=== PATIENT | female | born 1940 | race Caucasian/White ===

== ENCOUNTER 2016-04-27 17:19 | Inpatient (IN) | payer MEDICARE, OTHER ==
--- NOTE | 2016-04-27 18:18 | ER Document Report ---
ED Respiratory Problem - General Chief Complaint: Shortness Of Breath Stated Complaint: DIFFICULTY BREATHING Time seen by provider: 18:17 Mode of Arrival: Medic Information source: Emergency Med Personnel TRAVEL OUTSIDE OF THE [place] IN LAST 30 DAYS: No - HPI Patient complains to provider of: Short of breath Onset: Just prior to arrival Severity: Moderate Short of Breath: Moderate Cough: Nonproductive Associated symptoms: Difficulty breathing Notes: Patient is a 76-year-old female brought to the emergency room by EMS for reported difficulty breathing with an initial pulse ox in the 70s on EMS arrival , however patient is nonverbal, is unable to provide any further details and no family members have presented to the emergency room with her for additional information, patient is chronically ill-appearing, with dry oral mucosa, but does not appear in any acute distress on initial evaluation - Related Data Allergies/Adverse Reactions: codeine [Codeine] Allergy (Verified 12/26/14 09:29) Heparin Analogues [Heparin Agents] Allergy (Verified 12/26/14 09:29) latex [Latex] Allergy (Verified 12/26/14 09:29) meperidine HCl [From Demerol] Allergy (Verified 12/26/14 09:29) Home Medications: Current Home Medications Polyethylene Glycol 3350 [Polyethylene Glycol] 1 cap PEG DAILY 04/28/16 [History ] Past Medical History - General Information source: Emergency Med Personnel - Social History Smoking Status: Unknown if Ever Smoked Family History: Reviewed & Not Pertinent - Past Medical History Cardiac Medical History: Reports: Hx Hypertension Pulmonary Medical History: Reports: Hx COPD Endocrine Medical History: Reports: Hx Diabetes Mellitus Type 2 Past Surgical History: Reports: Hx Bowel Surgery - PEG Tube insertion, Hx Cardiac Surgery, Hx Open Heart Surgery - Immunizations Hx Pneumococcal Vaccination: 04/17/10 Review of Systems - Review of Systems -: Yes ROS unobtainable due to patient's medical condition Respiratory: No symptoms reported Physical Exam - Vital signs Vitals: Temp Pulse Resp BP Pulse Ox 98.3 F 82 22 H 138/83 H 95 04/27/16 17:45 04/27/16 17:45 04/27/16 17:45 04/27/16 17:45 04/27/16 17:45 Interpretation: Tachypneic - General General appearance: Other - Somnolent but arousable, chronically ill-appearing, frail - HEENT Head: Normocephalic, Atraumatic Eyes: Normal Conjunctiva: Normal Eyelashes: Normal Pupils: PERRL Mucous membranes: Dry Neck: Normal - Respiratory Respiratory status: No respiratory distress, Tachypnea Chest status: Nontender Breath sounds: Rhonchi Chest palpation: Normal - Cardiovascular Rhythm: Regular Heart sounds: Normal auscultation Murmur: Yes Systolic murmur grade 1-6: 5 - Abdominal Inspection: Normal Distension: No distension Bowel sounds: Normal Tenderness: Nontender Organomegaly: No organomegaly - Rectal Notes: Patient with sacral decubitus wound with bandaging in place, no surrounding erythema, no drainage - Back Back: Normal, Nontender - Extremities General upper extremity: Nontender, Normal temperature General lower extremity: Nontender, Normal temperature. No: Kelin's sign Notes: Chronically contracted appearing limbs - Neurological Blu Coma Scale Eye Opening: To Voice Blu Coma Scale Verbal: None [place] Coma Scale Motor: Withdraws to Pain [place] Coma Scale Total: 8 Sensory: Normal - Skin Skin Temperature: Warm Skin Moisture: Dry Skin Color: Pale Course - Re-evaluation Re-evalutation: 04/28/16 05:48 Patient chronically ill-appearing, labs reveal moderate hypernatremia, CT scan of the chest was performed because to portable chest x-rays had abnormality in the left lower lung that appeared to be possible pneumothorax, CT chest shows multiple pulmonary nodules resembling metastases, patient is nonverbal and no family members presented with her so I have no knowledge of any prior diagnosis of cancer, however patient does appear to require ICU admission was discussed with the hospitalist who is in agreement - Vital Signs Vital signs: Temp Pulse Resp BP Pulse Ox 98.2 F 82 11 L 142/58 H 98 04/27/16 19:32 04/27/16 17:45 04/28/16 04:01 04/28/16 04:01 04/28/16 04:01 - Laboratory Result Diagrams: 04/27/16 19:04 04/27/16 19:04 Laboratory results interpreted by me: 04/27/16 04/27/16 04/27/16 19:04 19:04 19:04 Hgb 11.3 L Hct 34.0 L RDW 18.2 H Seg Neutrophils % 81.7 H Lymphocytes % 12.3 L Absolute Neutrophils 8.4 H VBG pH Sodium 150.5 H Chloride 112 H BUN 25 H Creatinine 0.50 L Glucose 119 H Creatine Kinase < 20 L NT-Pro-B Natriuret Pep 4140 H Total Protein 6.0 L Albumin 2.8 L Urine Protein Urine Blood Ur Leukocyte Esterase 04/27/16 04/27/16 19:04 19:04 Hgb Hct RDW Seg Neutrophils % Lymphocytes % Absolute Neutrophils VBG pH 7.45 H Sodium Chloride BUN Creatinine Glucose Creatine Kinase NT-Pro-B Natriuret Pep Total Protein Albumin Urine Protein 100 H Urine Blood SMALL H Ur Leukocyte Esterase LARGE H - Diagnostic Test Radiology reviewed: Image reviewed, Reports reviewed - EKG Interpretation by Me EKG shows normal: Sinus rhythm Rate: Normal Rhythm: NSR - Transfer of Care Care transferred to following provider: Dr. Bonilla Discharge - Discharge Clinical Impression: Dehydration with hypernatremia, Encephalopathy, Pulmonary nodules/lesions, multiple Sacral decubitus ulcer Qualifiers: Pressure ulcer stage: unspecified pressure ulcer stage Qualified Code(s): L89.159 - Pressure ulcer of sacral region, unspecified stage UTI (urinary tract infection) Qualifiers: Urinary tract infection type: site unspecified Hematuria presence: without hematuria Qualified Code(s): N39.0 - Urinary tract infection, site not specified Condition: Serious Disposition: ADMITTED INPATIENT Admitting Provider: Hospitalist Unit Admitted: ICU
[2016-04-27 19:46] LABS: VENOUS BLOOD BASE EXCESS 5.2 mmol/L; VENOUS BLOOD PCO2 44.6 mmHg (35-63); VENOUS BLOOD PH 7.45 (7.30-7.42)
[2016-04-27 19:53] LABS: AMORPHOUS SEDIMENT,URINE TRACE /HPF; APPEARANCE,URINE CLOUDY; BILIRUBIN,URINE NEGATIVE (NEGATIVE); GLUCOSE, URINE NEGATIVE (NEGATIVE); KETONES,URINE NEGATIVE (NEGATIVE); LEUKOCYTE ESTERASE,URINE LARGE (NEGATIVE); NITRITE,URINE NEGATIVE (NEGATIVE); PROTEIN,URINE 100 mg/dL (NEGATIVE); URINE SPECIFIC GRAVITY 1.023; UROBILINOGEN,URINE NEGATIVE mg/dL (<2.0)
[2016-04-27 20:01] LABS: ALANINE AMINOTRANSFERASE 12 U/L (9-52); ALBUMIN 2.8 g/dL (3.5-5.0); ALKALINE PHOSPHATASE 72 U/L (38-126); ANION GAP 12 (5-19); ASPARTATE AMINO TRANSFERASE 15 U/L (14-36); BILIRUBIN,TOTAL 0.4 mg/dL (0.2-1.3); BLOOD UREA NITROGEN 25 mg/dL (7-20); CALCIUM 9.4 mg/dL (8.4-10.2); CARBON DIOXIDE 27 mmol/L (22-30); CHLORIDE 112 mmol/L (98-107); GLUCOSE 119 mg/dL (75-110); POTASSIUM 3.7 mmol/L (3.6-5.0); SODIUM 150.5 mmol/L (137-145)
[2016-04-27 20:09] LABS: CREATINE KINASE < 20 U/L (30-135)
[2016-04-27 20:12] LABS: ABSOLUTE LYMPHOCYTES (AUTO) 1.3 10^3/uL (0.5-4.7); ABSOLUTE MONOCYTES (AUTO) 0.6 10^3/uL (0.1-1.4); ABSOLUTE NEUT (AUTO) 8.4 10^3/uL (1.7-8.2); BASOPHILS % (AUTO) 0.3 % (0-2); HEMOGLOBIN 11.3 g/dL (12.0-15.5); HGB HCT DIFFERENCE -0.1; LYMPHOCYTES % (AUTO) 12.3 % (13-45); MEAN CORPUSCULAR HEMOGLOBIN 27.2 pg (27.0-33.4); MEAN CORPUSCULAR HGB CONC 33.3 g/dL (32.0-36.0); MEAN CORPUSCULAR VOLUME 82 fl (80-97); MONOCYTES % (AUTO) 5.7 % (3-13); RED BLOOD COUNT 4.17 10^6/uL (3.72-5.28); RED CELL DISTRIBUTION WIDTH 18.2 % (11.5-14.0); SEGMENTED NEUTROPHILS % (AUTO) 81.7 % (42-78); WHITE BLOOD COUNT 10.2 10^3/uL (4.0-10.5)
[2016-04-27 20:14] LABS: CREATINE KINASE MB 0.63 ng/mL (<4.55)
[2016-04-27 20:19] LABS: TROPONIN I 0.046 ng/mL
[2016-04-27] MEDS ORDERED: CEFTRIAXONE INJ 1000 MG VIAL IV ONE (23:03)
[2016-04-27] MEDS ORDERED: 1/2 NORMAL SALINE 1,000 ML IV PRN (23:04)
[2016-04-28] MEDS ORDERED: DEXTROSE 40% GEL 15 GM TUBE PO PRN ×2 (05:03)
[2016-04-28] MEDS ORDERED: GLUCAGON,HUMAN RECOMB 1 MG INJ IM PRN (05:03)
[2016-04-28] MEDS ORDERED: DEXTROSE 50%-WATER 25 GM/50 ML DISP.SYRIN IV PRN ×2 (05:03)
[2016-04-28] MEDS ORDERED: ACETAMINOPHEN SOLN 325 MG/10.15 ML UDCUP PEG PRN (05:11)
--- NOTE | 2016-04-28 05:27 | PDOC H&P ---
History of Present Illness Admission Date/PCP: 04/28/16 04:21 Patient complains of: difficulty breathing History of Present Illness: MENDEL HEADLEY is a 76 year old female with chronic indwelling PEG tube , along with multiple chronic comorbidities, to be outlined below, who presents to the emergency room for evaluation of above complaint. Patient has been discussed with emergency room physician who evaluated the patient. Patient is almost completely aphasic and is able to provide no history whatsoever in terms of acute or chronic events, review of systems, personal habits, family history, etc. No friends or family are present. Old inpatient records are reviewed. Patient's only verbal response is "no" when asked if she is having pain. She also stated that she was "cold." While her eyes did follow the examiner, she was otherwise minimally interactive. No outward distress other than somewhat anxious. Per emergency room physician notes, EMS was called for difficulty breathing, with initial oxygen saturation in the 70 percentile range. No family members present. The patient can provide no information herself. No further information available this point in time. Laboratory results are listed in [facility] [facility] and are reviewed. X-ray summary results are listed below, with full report(s) reviewed. . EKG reviewed . Social history/personal habits: No information available this point in time. Allergies/adverse reactions are listed in [employer] and are reviewed. Home medications are reviewed from a typed list accompanying patient and are to be reconciled by nursing staff in [facility]. Home medications initially autopopulated into [employer] may not accurately reflect patient's true medications, dosages, and/or frequencies. REVIEW OF SYSTEMS: See history and present illness. No further information available this point in time. PHYSICAL EXAMINATION: Neither height nor weight are recorded on the chart. Temperature 98.2. Blood pressure 142/58. Pulse 50 and regular. 100% saturation on 2 L oxygen per nasal cannula. Respirations are 17 and unlabored. Thin chronically ill appearing female who nevertheless appears approximately her stated age. Has the overall appearance of failure to thrive. Female emergency room nurse Cathleen is present. Skin is warm and dry. No grossly obvious evidence of rash in areas of skin examined. No subcutaneous nodules palpated. On her sacrum, just left of midline, she has tightly adherent dressing with a wound VAC in place. This is left in place. No evidence of decubiti on heels or malleoli. ENT: Hearing grossly normal to normal conversation. Tongue midline on protrusion pink and slightly tacky. Eyes: No scleral icterus. Pupils equal and reactive to light at 4 mm. Hoskins conjunctivae. No raccoon eyes. Neck is nontender to palpation. Midline trachea. No palpable thyroid nodule mass enlargement or tenderness. Lymphatic: No palpable cervical or clavicular nodes. Neck and lymphatic exams limited by patient body habitus. Psychiatric: Can't be adequately evaluated due to her current status. Lungs: Auscultation reveals clear and equal breath sounds bilaterally. No use of accessory respiratory muscles. Cardiovascular: Heart regular rate and rhythm, without gallop or rub. Very subtle holosystolic murmur heard at the cardiac apex. No carotid or abdominal aortic bruits. No ankle or pedal edema. Faintly palpable dorsalis pedis pulses. Abdomen: soft, , nontender with positive bowel sounds. No upper abdominal mass or organomegaly is palpated. PEG tube site is clean without evidence of infection or obvious drainage.. Extremities: Feet are warm and dry. No calf tenderness to compression. No grossly obvious visual evidence of calf swelling. Slight flexion contractures at knees and hips.. Neurologic: Patellar reflexes absent. Absent Babinski. Light touch can't be determined due to her current status.. Very slight movement of toes upon request. No further movement at feet or ankles. Past Medical History Cardiac Medical History: Reports: Hypertension Pulmonary Medical History: Reports: Chronic Obstructive Pulmonary Disease (COPD) Endocrine Medical History: Reports: Diabetes Mellitus Type 2 Past Surgical History Past Surgical History: Reports: Other - PEG tube insertion; open-heart surgery Social History Information Source: Emergency Med Personnel, [facility] Records Lives with: Family Smoking Status: Unknown if Ever Smoked Frequency of Alcohol Use: None Hx Recreational Drug Use: No Hx Prescription Drug Abuse: No - Advance Directive Resuscitation Status: Full Code Surrogate healthcare decision maker:: Uncertain at this point in time. Family History Family History: Reviewed & Not Pertinent Parental Family History Reviewed: Yes - per emergency room records Children Family History Reviewed: Yes Sibling(s) Family History Reviewed.: Yes Medication/Allergy Home Medications: Aspirin 81 mg PEG DAILY 12/26/14 Cyanocobalamin (Vitamin B-12) [B-12] 1,000 mcg PEG DAILY 12/26/14 Esomeprazole Mag Trihydrate [Nexium] 40 mg PEG DAILY 12/26/14 Furosemide [Lasix 20 mg Tablet] 10 mg PEG DAILY 12/26/14 Losartan Potassium [Cozaar 50 mg Tablet] 50 mg PEG DAILY 12/26/14 Metformin HCl [Glucophage] 1,000 mg PEG Q12 12/26/14 Amlodipine Besylate 10 mg PEG DAILY #30 12/30/14 Levothyroxine Sodium [Synthroid 0.1 mg Tablet] 0.1 mg PEG DAILY #30 12/30/14 Rosuvastatin Calcium [Crestor] 40 mg PEG DAILY #30 12/30/14 Sennosides [Senna] 8.6 mg PEG QHS #30 12/30/14 Insulin Glargine,Hum.rec.anlog [Lantus Solostar] 10 unit SQ QHS 04/28/16 Metoclopramide HCl 5 mg PEG Q8 04/28/16 Polyethylene Glycol 3350 [Polyethylene Glycol] 1 cap PEG DAILY 04/28/16 Allergies/Adverse Reactions: codeine [Codeine] Allergy (Verified 12/26/14 09:29) Heparin Analogues [Heparin Agents] Allergy (Verified 12/26/14 09:29) latex [Latex] Allergy (Verified 12/26/14 09:29) meperidine HCl [From Demerol] Allergy (Verified 12/26/14 09:29) Physical Exam Vital Signs: Temp Pulse Resp BP Pulse Ox 98.2 F 82 11 L 142/58 H 98 04/27/16 19:32 04/27/16 17:45 04/28/16 04:01 04/28/16 04:01 04/28/16 04:01 Results Impressions: Chest X-Ray 04/27/16 20:50 IMPRESSION: CHRONIC INTERSTITIAL CHANGES. THE PERIPHERAL LUCENCY IN THE LEFT LUNG BASE PERSISTS AND MAY BE ARTIFACT THE LINEAR SHADOW DOES EXTEND FROM THE MID CHEST TO BELOW THE DIAPHRAGM, SUGGESTING OVERLYING SKIN FOLD. HOWEVER, CANNOT DEFINITELY CONFIRM THE PRESENCE OF LUNG MARKINGS PERIPHERALLY IN THE LEFT BASE. CANNOT COMPLETELY EXCLUDE POSSIBILITY OF AN ATYPICAL PNEUMOTHORAX. NONCONTRAST CT MAY BE CONSIDERED TO PROVIDE DEFINITIVE EVALUATION. Chest CT 04/27/16 21:50 IMPRESSION: 1. NO PNEUMOTHORAX. THE FINDING ON THE CHEST X-RAY IS APPARENTLY ARTIFACT DUE TO OVERLYING SKIN FOLD. 2. 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 3. COPD WITH CHRONIC PARENCHYMAL SCARRING. NO ACUTE FINDINGS IN THE CHEST. Assessment & Plan - Diagnosis (1) Diabetes mellitus type II, controlled Qualifiers: Diabetes mellitus complication status: without complication Diabetes mellitus business applications manager insulin use: unspecified business applications manager insulin use status Qualified Code(s): E11.9 - Type 2 diabetes mellitus without complications Is this a current diagnosis for this admission?: YesPlan: Dietary consult for enteral feeding recommendation. Accu-Cheks with appropriate sliding scale coverage.Resume home medications as appropriate once these have been reviewed. (2) HTN (hypertension) Qualifiers: Hypertension type: essential hypertension Qualified Code(s): I10 - Essential (primary) hypertension Is this a current diagnosis for this admission?: YesPlan: Resume home medications as appropriate once these have been reviewed. (3) Hypothyroid Qualifiers: Hypothyroidism type: unspecified Qualified Code(s): E03.9 - Hypothyroidism, unspecified Is this a current diagnosis for this admission?: YesPlan: TSH level pending.Resume home medications as appropriate once these have been reviewed. (4) Anemia Qualifiers: Anemia type: unspecified type Qualified Code(s): D64.9 - Anemia, unspecified Is this a current diagnosis for this admission?: YesPlan: No need for transfusion at present time. Follow-up CBC. (5) Dehydration with hypernatremia Is this a current diagnosis for this admission?: YesPlan: IV fluids. Follow-up chemistry. Likely will need more free water per PEG tube. (6) Elevated troponin Is this a current diagnosis for this admission?: YesPlan: No clinical evidence of acute coronary syndrome at this point in time, but we will proceed with repeat troponin. (7) Pulmonary nodules/lesions, multiple Is this a current diagnosis for this admission?: YesPlan: Oncology consult. (8) UTI (urinary tract infection) Qualifiers: Urinary tract infection type: site unspecified Hematuria presence: without hematuria Qualified Code(s): N39.0 - Urinary tract infection, site not specified Is this a current diagnosis for this admission?: YesPlan: Intravenous antibiotics. Prior urine culture from earlier this year reviewed. (9) Sacral decubitus ulcer Qualifiers: Pressure ulcer stage: unspecified pressure ulcer stage Qualified Code(s ): L89.159 - Pressure ulcer of sacral region, unspecified stage Is this a current diagnosis for this admission?: YesPlan: Innovative mattress. Turn every 2 hours. Dietary consult. With wound VAC in place, surgery consult. (10) PEG (percutaneous endoscopic gastrostomy) status Is this a current diagnosis for this admission?: Yes - Inpatient Certification Based on my medical assessment, after consideration of the patient's comorbidities, presenting symptoms, or acuity I expect that the services needed warrant INPATIENT care.: Yes I certify that my determination is in accordance with my understanding of Medicare's requirements for reasonable and necessary INPATIENT services [42 CFR 412.3e].: Yes Medical Necessity: Need Close Monitoring Due to Risk of Patient Decompensation, Need For IV Fluids, Need For Continuous Telemetry Monitoring, Need for IV Antibiotics, Risk of Complication if Not Cared For in Hospital, Risk of Diagnosis Which Will Require Inpatient Eval/Care/Monitoring Post Hospital Care: D/C or Transfer Summary
[2016-04-28 07:07] LABS: ABSOLUTE LYMPHOCYTES (AUTO) 1.2 10^3/uL (0.5-4.7); ABSOLUTE MONOCYTES (AUTO) 0.4 10^3/uL (0.1-1.4); ABSOLUTE NEUT (AUTO) 5.6 10^3/uL (1.7-8.2); BASOPHILS % (AUTO) 0.4 % (0-2); EOSINOPHILS % (AUTO) 0.1 % (0-6); HEMATOCRIT 33.5 % (36.0-47.0); HEMOGLOBIN 11.1 g/dL (12.0-15.5); HGB HCT DIFFERENCE -0.2; LYMPHOCYTES % (AUTO) 16.9 % (13-45); MEAN CORPUSCULAR HEMOGLOBIN 27.2 pg (27.0-33.4); MEAN CORPUSCULAR HGB CONC 33.2 g/dL (32.0-36.0); MEAN CORPUSCULAR VOLUME 82 fl (80-97); RED CELL DISTRIBUTION WIDTH 17.8 % (11.5-14.0); SEGMENTED NEUTROPHILS % (AUTO) 77.6 % (42-78); WHITE BLOOD COUNT 7.2 10^3/uL (4.0-10.5)
[2016-04-28 07:17] LABS: ANION GAP 10 (5-19); BLOOD UREA NITROGEN 24 mg/dL (7-20); CALCIUM 9.6 mg/dL (8.4-10.2); CARBON DIOXIDE 26 mmol/L (22-30); CHLORIDE 113 mmol/L (98-107); CREATININE RESULT 0.46 mg/dL (0.52-1.25); GLUCOSE 126 mg/dL (75-110); MAGNESIUM 2.2 mg/dL (1.6-2.3); POTASSIUM 3.7 mmol/L (3.6-5.0); SODIUM 148.7 mmol/L (137-145)
[2016-04-28] MEDS: POTASSI CL 20 MEQ/1/2NS 1L 20 MEQ/1,000 ML RTUINJ IV PRN (08:41)
--- NOTE | 2016-04-28 09:41 | EKG REPORT ---
SEVERITY:- ABNORMAL ECG - SINUS RHYTHM CONSIDER LEFT VENTRICULAR HYPERTROPHY BORDERLINE T ABNORMALITIES, INFERIOR LEADS : Confirmed by: Concha Bowden MD 28-Apr-2016 09:40:53
[2016-04-28] MEDS ORDERED: DOCUSATE SODIUM 100 MG/10 ML UDC PEG SCH (10:00)
[2016-04-28 11:22] LABS: FREE T3 1.44 pg/mL (2.77-5.27)
[2016-04-28] MEDS: HYDRALAZINE HCL INJ/PF 20 MG/1 ML SDV IV PRN (11:43)
[2016-04-28] MEDS: PIPERACILLIN SODIUM/TAZOBACTAM 3.375 GM in NORMAL SALINE 100 ML IV SCH ×2 (13:15→17:24)
[2016-04-28] MEDS: HYDROCORTISONE SOD SUCCINATE INJ/PF 100 MG/2 ML SDV IV SCH ×2 (13:15→22:57)
--- NOTE | 2016-04-28 13:42 | PDOC CONSULTATION ---
Consultation Consult reason:: Evaluate sacral decubitus ulcer wound History of Present Illness Admission Date/PCP: 04/28/16 05:07 History of Present Illness: 76-year-old female bedbound with long history of sacral decubitus ulcer that has been managed in the past with debridement and with wound VAC. She has the wound VAC still in place. She is currently admitted to the hospital for other reasons. Hospitalist is consulting surgicalist for guidance with the wound VAC. Past Medical History Cardiac Medical History: Reports: Hypertension Pulmonary Medical History: Reports: Chronic Obstructive Pulmonary Disease (COPD) Endocrine Medical History: Reports: Diabetes Mellitus Type 2 Psychiatric Medical History: Denies: Depression Social History Lives with: Family Smoking Status: Never Smoker Frequency of Alcohol Use: None Hx Recreational Drug Use: No Hx Prescription Drug Abuse: No - Advance Directive Resuscitation Status: Full Code Family History Family History: Reviewed & Not Pertinent Parental Family History Reviewed: No Children Family History Reviewed: No Sibling(s) Family History Reviewed.: No Medication/Allergy Home Medications: Aspirin 81 mg PEG DAILY 12/26/14 Cyanocobalamin (Vitamin B-12) [B-12] 1,000 mcg PEG DAILY 12/26/14 Esomeprazole Mag Trihydrate [Nexium] 40 mg PEG DAILY 12/26/14 Furosemide [Lasix 20 mg Tablet] 10 mg PEG DAILY 12/26/14 Losartan Potassium [Cozaar 50 mg Tablet] 50 mg PEG DAILY 12/26/14 Metformin HCl [Glucophage] 1,000 mg PEG Q12 12/26/14 Amlodipine Besylate 10 mg PEG DAILY #30 12/30/14 Levothyroxine Sodium [Synthroid 0.1 mg Tablet] 0.1 mg PEG DAILY #30 12/30/14 Rosuvastatin Calcium [Crestor] 40 mg PEG DAILY #30 12/30/14 Sennosides [Senna] 8.6 mg PEG QHS #30 12/30/14 Insulin Glargine,Hum.rec.anlog [Lantus Solostar] 10 unit SQ QHS 04/28/16 Metoclopramide HCl 5 mg PEG Q8 04/28/16 Polyethylene Glycol 3350 [Polyethylene Glycol] 1 cap PEG DAILY 04/28/16 Allergies/Adverse Reactions: codeine [Codeine] Allergy (Verified 12/26/14 09:29) Heparin Analogues [Heparin Agents] Allergy (Verified 12/26/14 09:29) latex [Latex] Allergy (Verified 12/26/14 09:29) meperidine HCl [From Demerol] Allergy (Verified 12/26/14 09:29) Physical Exam Vital Signs: Temp Pulse Resp BP Pulse Ox 97.6 F 48 L 16 199/74 H 100 04/28/16 11:06 04/28/16 11:06 04/28/16 11:06 04/28/16 11:06 04/28/16 11:06 Intake & Output 04/27/16 04/28/16 04/29/16 06:59 06:59 06:59 Weight 44.8 kg General appearance: PRESENT: no acute distress, other - Thin, chronically ill- appearing, does not obey commands. No acute distress. Skin exam: PRESENT: other - Approximately 2 cm sacral decubitus ulcer about 2 cm deep that appears very clean with granulation tissue with no surrounding erythema nor induration. Results Laboratory Results: 04/28/16 06:29 04/28/16 06:29 04/28/16 04/28/16 04/28/16 06:29 06:29 06:29 WBC 7.2 RBC 4.10 Hgb 11.1 L Hct 33.5 L MCV 82 MCH 27.2 MCHC 33.2 RDW 17.8 H Plt Count 173 Seg Neutrophils % 77.6 Lymphocytes % 16.9 Monocytes % 5.0 Eosinophils % 0.1 Basophils % 0.4 Absolute Neutrophils 5.6 Absolute Lymphocytes 1.2 Absolute Monocytes 0.4 Absolute Eosinophils 0.0 Absolute Basophils 0.0 Sodium 148.7 H Potassium 3.7 Chloride 113 H Carbon Dioxide 26 Anion Gap 10 BUN 24 H Creatinine 0.46 L Est GFR ( Amer) > 60 Est GFR (Non-Af Amer) > 60 Glucose 126 H Calcium 9.6 Magnesium 2.2 TSH 0.37 L Free T4 Free T3 pg/mL 04/28/16 06:29 WBC RBC Hgb Hct MCV MCH MCHC RDW Plt Count Seg Neutrophils % Lymphocytes % Monocytes % Eosinophils % Basophils % Absolute Neutrophils Absolute Lymphocytes Absolute Monocytes Absolute Eosinophils Absolute Basophils Sodium Potassium Chloride Carbon Dioxide Anion Gap BUN Creatinine Est GFR ( Amer) Est GFR (Non-Af Amer) Glucose Calcium Magnesium TSH Free T4 1.82 Free T3 pg/mL 1.44 L 04/28/16 06:29 Troponin I 0.070 Impressions: Chest X-Ray 04/27/16 20:50 IMPRESSION: CHRONIC INTERSTITIAL CHANGES. THE PERIPHERAL LUCENCY IN THE LEFT LUNG BASE PERSISTS AND MAY BE ARTIFACT THE LINEAR SHADOW DOES EXTEND FROM THE MID CHEST TO BELOW THE DIAPHRAGM, SUGGESTING OVERLYING SKIN FOLD. HOWEVER, CANNOT DEFINITELY CONFIRM THE PRESENCE OF LUNG MARKINGS PERIPHERALLY IN THE LEFT BASE. CANNOT COMPLETELY EXCLUDE POSSIBILITY OF AN ATYPICAL PNEUMOTHORAX. NONCONTRAST CT MAY BE CONSIDERED TO PROVIDE DEFINITIVE EVALUATION. Chest CT 04/27/16 21:50 IMPRESSION: 1. NO PNEUMOTHORAX. THE FINDING ON THE CHEST X-RAY IS APPARENTLY ARTIFACT DUE TO OVERLYING SKIN FOLD. 2. 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 3. COPD WITH CHRONIC PARENCHYMAL SCARRING. NO ACUTE FINDINGS IN THE CHEST. Assessment & Plan - Diagnosis (1) Sacral decubitus ulcer Qualifiers: Pressure ulcer stage: stage 3 Qualified Code(s): L89.153 - Pressure ulcer of sacral region, stage 3 Is this a current diagnosis for this admission?: YesPlan: Appears to be granulating. It is a chronic wound. Will continue wound VAC. Patient will need follow-up with wound care clinic as an outpatient. If the wound does not heal in the next several weeks she may require a biopsy.
[2016-04-28] MEDS ORDERED: INFLUENZA ADLT QUAD (36MOS+) 2016-17 VAC 0.5 ML SYR IM PRN (15:32)
--- NOTE | 2016-04-28 16:54 | PDOC PROGRESS REPORT ---
Subjective Progress Note for:: 04/28/16 Subjective:: The patient was seen earlier today on rounds. The patient was found to be very frail, chronically ill-appearing. The patient was able to answer questions with simple yes or nos but was unable to articulate other parts of the history. Patient did deny any known history of cancer. No reported episodes of vomiting nor diarrhea. The patient denies any nausea, vomiting, diarrhea, shortness of breath, dizziness, chest pain, heart palpitations, fevers, or chills. The patient has remained afebrile. Blood pressures have been in a good range. When prompted the patient voices no other concerns at this time. Review of systems: The rest of the review of systems is negative. Physical Exam Vital Signs: Temp Pulse Resp BP Pulse Ox 97.6 F 52 L 16 126/49 H 100 04/28/16 11:06 04/28/16 14:00 04/28/16 11:06 04/28/16 13:25 04/28/16 11:06 Intake & Output 04/26/16 04/27/16 04/28/16 23:59 23:59 23:59 Weight 44.8 kg General appearance: PRESENT: disheveled, thin, other - Frail, chronically ill- appearing, emaceated, cachectic Head exam: PRESENT: atraumatic, normocephalic Eye exam: PRESENT: conjunctiva pale. ABSENT: scleral icterus Ear exam: PRESENT: normal external ear exam Mouth exam: PRESENT: moist Neck exam: ABSENT: carotid bruit, JVD, lymphadenopathy, tenderness, thyromegaly , tracheal deviation, tracheostomy Respiratory exam: PRESENT: decreased breath sounds, symmetrical, unlabored. ABSENT: tachypnea Cardiovascular exam: PRESENT: bradycardia, RRR Pulses: PRESENT: +1 pedal pulses bilateral Vascular exam: PRESENT: pallor GI/Abdominal exam: PRESENT: soft. ABSENT: distended, guarding, rigid Rectal exam: PRESENT: deferred Extremities exam: ABSENT: pedal edema Musculoskeletal exam: ABSENT: ambulatory Neurological exam: PRESENT: alert, awake, other - Garbled speech. ABSENT: CN II -XII grossly intact, motor sensory deficit Psychiatric exam: ABSENT: anxious, appropriate affect Skin exam: PRESENT: dry, mottled, pallor, other - Extensive cuticle fungi noted on digits of upper extremity. ABSENT: cyanosis, erythema Results Laboratory Results: 04/28/16 06:29 04/28/16 06:29 04/28/16 04/28/16 04/28/16 06:29 06:29 06:29 WBC 7.2 RBC 4.10 Hgb 11.1 L Hct 33.5 L MCV 82 MCH 27.2 MCHC 33.2 RDW 17.8 H Plt Count 173 Seg Neutrophils % 77.6 Lymphocytes % 16.9 Monocytes % 5.0 Eosinophils % 0.1 Basophils % 0.4 Absolute Neutrophils 5.6 Absolute Lymphocytes 1.2 Absolute Monocytes 0.4 Absolute Eosinophils 0.0 Absolute Basophils 0.0 Sodium 148.7 H Potassium 3.7 Chloride 113 H Carbon Dioxide 26 Anion Gap 10 BUN 24 H Creatinine 0.46 L Est GFR ( Amer) > 60 Est GFR (Non-Af Amer) > 60 Glucose 126 H Calcium 9.6 Magnesium 2.2 TSH 0.37 L Free T4 Free T3 pg/mL 04/28/16 06:29 WBC RBC Hgb Hct MCV MCH MCHC RDW Plt Count Seg Neutrophils % Lymphocytes % Monocytes % Eosinophils % Basophils % Absolute Neutrophils Absolute Lymphocytes Absolute Monocytes Absolute Eosinophils Absolute Basophils Sodium Potassium Chloride Carbon Dioxide Anion Gap BUN Creatinine Est GFR ( Amer) Est GFR (Non-Af Amer) Glucose Calcium Magnesium TSH Free T4 1.82 Free T3 pg/mL 1.44 L 04/28/16 06:29 Troponin I 0.070 Impressions: Chest X-Ray 04/27/16 20:50 IMPRESSION: CHRONIC INTERSTITIAL CHANGES. THE PERIPHERAL LUCENCY IN THE LEFT LUNG BASE PERSISTS AND MAY BE ARTIFACT THE LINEAR SHADOW DOES EXTEND FROM THE MID CHEST TO BELOW THE DIAPHRAGM, SUGGESTING OVERLYING SKIN FOLD. HOWEVER, CANNOT DEFINITELY CONFIRM THE PRESENCE OF LUNG MARKINGS PERIPHERALLY IN THE LEFT BASE. CANNOT COMPLETELY EXCLUDE POSSIBILITY OF AN ATYPICAL PNEUMOTHORAX. NONCONTRAST CT MAY BE CONSIDERED TO PROVIDE DEFINITIVE EVALUATION. Chest CT 04/27/16 21:50 IMPRESSION: 1. NO PNEUMOTHORAX. THE FINDING ON THE CHEST X-RAY IS APPARENTLY ARTIFACT DUE TO OVERLYING SKIN FOLD. 2. 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 3. COPD WITH CHRONIC PARENCHYMAL SCARRING. NO ACUTE FINDINGS IN THE CHEST. Assessment & Plan - Diagnosis (1) Pulmonary nodules/lesions, multiple Is this a current diagnosis for this admission?: YesPlan: I spoke with Dr. Dodge with oncology as well as the patient's . According to the patient's the patient had unknown skin cancer removed from her head about 2 years ago. Is unable to confirm whether or not this was melanoma. The patient's stated that a PET scan was done 5 years ago which was negative. Shared this information oncology which also communicated with radiology and review of the PET scan done in [place] 5 years ago reveals that none of these nodules have changed. Will forego metastatic workup. (2) Malnutrition Is this a current diagnosis for this admission?: YesPlan: This appears to be severe. The patient's BMI is 18. According to the the patient mainly receives PEG feedings however for her safety they do give her oral foods although they are aware that she may be aspirating. The patient' s management has been thus far palliative. 04/27/16 19:04 Albumin 2.8 L (3) Dehydration with hypernatremia Is this a current diagnosis for this admission?: YesPlan: Continue to gently hydrate (4) Elevated troponin Is this a current diagnosis for this admission?: Yes (5) HTN (hypertension) Qualifiers: Hypertension type: essential hypertension Qualified Code(s): I10 - Essential (primary) hypertension Is this a current diagnosis for this admission?: Yes (6) Hypothyroid Qualifiers: Hypothyroidism type: unspecified Qualified Code(s): E03.9 - Hypothyroidism, unspecified Is this a current diagnosis for this admission?: YesPlan: The patient's T4 is also low. Will increase the patient's Synthroid. (7) UTI (urinary tract infection) Qualifiers: Urinary tract infection type: site unspecified Hematuria presence: without hematuria Qualified Code(s): N39.0 - Urinary tract infection, site not specified Is this a current diagnosis for this admission?: YesPlan: Will await culture T new current antibiotic coverage (8) Sacral decubitus ulcer Qualifiers: Pressure ulcer stage: unspecified pressure ulcer stage Qualified Code(s ): L89.159 - Pressure ulcer of sacral region, unspecified stage Is this a current diagnosis for this admission?: YesPlan: Frequent turns (9) Overgrown toenails Is this a current diagnosis for this admission?: YesPlan: The patient also has extensive nail fungi. (10) Bradycardia Is this a current diagnosis for this admission?: YesPlan: Uncertain of the exact etiology of this. Will hold calcium channel kristen. (11) PEG (percutaneous endoscopic gastrostomy) status Is this a current diagnosis for this admission?: Yes (12) Do not resuscitate Is this a current diagnosis for this admission?: Yes - Time Time Spent with patient: on this visit including assessment, plan, physical examination, extensive family conversation, multi specialty collaboration, and attempted patient education is 60 minutes. Time Spent with patient: 35 or more minutes Medications reviewed and adjusted accordingly: Yes Disposition: The patient is a DO NOT RESUSCITATE DO NOT INTUBATE. Pending patient's symptomatology and diagnostic findings will reevaluate as needed.
[2016-04-28] MEDS: ATORVASTATIN CALCIUM 80 MG TABLET PEG SCH (22:57)
[2016-04-28] MEDS: INSULIN GLARGINE,HUM.REC.ANLOG 300 UNIT/3 ML INSULN.PEN SUBCUT SCH (22:58)
[2016-04-29] MEDS: POTASSI CL 20 MEQ/1/2NS 1L 20 MEQ/1,000 ML RTUINJ IV PRN (00:12)
[2016-04-29] MEDS: PIPERACILLIN SODIUM/TAZOBACTAM 3.375 GM in NORMAL SALINE 100 ML IV SCH ×4 (00:12→17:50)
[2016-04-29] MEDS: HYDROCORTISONE SOD SUCCINATE INJ/PF 100 MG/2 ML SDV IV SCH (06:00)
--- NOTE | 2016-04-29 08:38 | PDOC CONSULTATION ---
Consultation Consult Date: 04/29/16 Attending physician:: JENNIFER ANDERS Consult reason:: Asked by hospitalist team to see pt w/ pulmonary nodules History of Present Illness Admission Date/PCP: 04/28/16 05:07 Patient complains of: weakness, confusion, respiratory distress, pulmonary nodules History of Present Illness: 76-year-old female who is chronically ill, with G-tube placement, with dementia and confusion chronically, who comes in with weakness, respiratory distress, who had CT of the chest done which indicated multiple pulmonary nodules concerning for metastatic disease. We were consulted to further evaluate this. As soon as we were consulted, I reviewed the images myself, I determine that there was a lesion that could be biopsied. However we received further information from the hospitalist team that the patient had a PET/CT to evaluate these pulmonary nodules several years ago, this was done at [facility] in [place], the radiologist, Dr. Ortiz compared the CT done here with the PET/CT done there and determined that the pulmonary nodules hadn' t changed at all. Past Medical History Cardiac Medical History: Reports: Hypertension Pulmonary Medical History: Reports: Chronic Obstructive Pulmonary Disease (COPD) Endocrine Medical History: Reports: Diabetes Mellitus Type 2 Psychiatric Medical History: Denies: Depression Social History Lives with: Family Smoking Status: Never Smoker Frequency of Alcohol Use: None Hx Recreational Drug Use: No Hx Prescription Drug Abuse: No - Advance Directive Resuscitation Status: Full Code Family History Family History: Reviewed & Not Pertinent Parental Family History Reviewed: Yes Children Family History Reviewed: Yes Sibling(s) Family History Reviewed.: Yes Medication/Allergy Home Medications: Aspirin 81 mg PEG DAILY 12/26/14 Cyanocobalamin (Vitamin B-12) [B-12] 1,000 mcg PEG DAILY 12/26/14 Esomeprazole Mag Trihydrate [Nexium] 40 mg PEG DAILY 12/26/14 Furosemide [Lasix 20 mg Tablet] 10 mg PEG DAILY 12/26/14 Losartan Potassium [Cozaar 50 mg Tablet] 50 mg PEG DAILY 12/26/14 Metformin HCl [Glucophage] 1,000 mg PEG Q12 12/26/14 Amlodipine Besylate 10 mg PEG DAILY #30 12/30/14 Levothyroxine Sodium [Synthroid 0.1 mg Tablet] 0.1 mg PEG DAILY #30 12/30/14 Rosuvastatin Calcium [Crestor] 40 mg PEG DAILY 12/30/15 Sennosides [Senna] 8.6 mg PEG QHS #30 12/30/14 Insulin Glargine,Hum.rec.anlog [Lantus Solostar] 10 unit SQ QHS 04/28/16 Metoclopramide HCl 5 mg PEG Q8 04/28/16 Polyethylene Glycol 3350 [Polyethylene Glycol] 1 cap PEG DAILY 04/28/16 Allergies/Adverse Reactions: codeine [Codeine] Allergy (Verified 12/26/14 09:29) Heparin Analogues [Heparin Agents] Allergy (Verified 12/26/14 09:29) latex [Latex] Allergy (Verified 12/26/14 09:29) meperidine HCl [From Demerol] Allergy (Verified 12/26/14 09:29) Review of Systems ROS unobtainable: Due to mental status Physical Exam Vital Signs: Temp Pulse Resp BP Pulse Ox 97.4 F 55 L 16 155/69 H 100 04/29/16 07:58 04/29/16 07:58 04/29/16 07:58 04/29/16 07:58 04/29/16 07:58 Intake & Output 04/28/16 04/29/16 04/30/16 06:59 06:59 06:59 Intake Total 2130 Balance 2130 Weight 47.6 kg General appearance: PRESENT: no acute distress, thin, other - Malnourished cachectic Head exam: PRESENT: atraumatic Mouth exam: PRESENT: dry mucosa Respiratory exam: PRESENT: crackles Cardiovascular exam: PRESENT: RRR. ABSENT: diastolic murmur, rubs, systolic murmur GI/Abdominal exam: PRESENT: other - G-tube Rectal exam: PRESENT: deferred Neurological exam: PRESENT: awake, other - Not oriented Skin exam: PRESENT: other - Sacral decubitus ulcer Results Laboratory Results: 04/28/16 06:29 04/28/16 06:29 04/28/16 06:29 Free T4 1.82 Free T3 pg/mL 1.44 L 04/28/16 06:29 Troponin I 0.070 Impressions: Chest X-Ray 04/27/16 20:50 IMPRESSION: CHRONIC INTERSTITIAL CHANGES. THE PERIPHERAL LUCENCY IN THE LEFT LUNG BASE PERSISTS AND MAY BE ARTIFACT THE LINEAR SHADOW DOES EXTEND FROM THE MID CHEST TO BELOW THE DIAPHRAGM, SUGGESTING OVERLYING SKIN FOLD. HOWEVER, CANNOT DEFINITELY CONFIRM THE PRESENCE OF LUNG MARKINGS PERIPHERALLY IN THE LEFT BASE. CANNOT COMPLETELY EXCLUDE POSSIBILITY OF AN ATYPICAL PNEUMOTHORAX. NONCONTRAST CT MAY BE CONSIDERED TO PROVIDE DEFINITIVE EVALUATION. Chest CT 04/27/16 21:50 IMPRESSION: 1. NO PNEUMOTHORAX. THE FINDING ON THE CHEST X-RAY IS APPARENTLY ARTIFACT DUE TO OVERLYING SKIN FOLD. 2. 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 3. COPD WITH CHRONIC PARENCHYMAL SCARRING. NO ACUTE FINDINGS IN THE CHEST. Status: Image reviewed by me Assessment & Plan - Diagnosis (1) Pulmonary nodules/lesions, multiple Is this a current diagnosis for this admission?: YesPlan: As noted above, reviewed the images extensively with radiology as well as compare the images with PET/CT, done previously, no changes, unlikely to be metastatic disease, more likely to be secondary to old granulomatous disease. Would recommend another CT to ensure stability of the next 6-12 months. This certainly can be done by her primary care provider. Otherwise, I have tried to contact her family to give them our recommendations, but was unable to. No further hematologic oncologic follow-up needed. - Time Time Spent: Greater than 70 Minutes Critical Time spent with patient: 35 or more minutes - Inpatient Certification Based on my medical assessment, after consideration of the patient's comorbidities, presenting symptoms, or acuity I expect that the services needed warrant INPATIENT care.: Yes I certify that my determination is in accordance with my understanding of Medicare's requirements for reasonable and necessary INPATIENT services [42 CFR 412.3e].: Yes Medical Necessity: Failure to Improve With Outpatient Therapy, Need for Neurological Checks, Need for IV Antibiotics
[2016-04-29] MEDS ORDERED: MORPHINE SULFATE 10 MG/5 ML ORAL SOLUTION UDCUP PO PRN (09:41)
--- NOTE | 2016-04-29 09:59 | PDOC PROGRESS REPORT ---
Subjective Progress Note for:: 04/29/16 Subjective:: The patient is currently lying in bed. The patient is unable to provide any history and mainly answers yes or no. Through the patient's garbled speech I was able to make out that she was stating that her "butt hurts". Blood pressures have been in a good range. The patient appears to be persistently bradycardic in the 40s and 50s. Norvasc has been stopped. The patient voices no other concerns at this time. Review of systems: A full review of systems is unobtainable given the patient's status. Physical Exam Vital Signs: Temp Pulse Resp BP Pulse Ox 97.4 F 55 L 16 155/69 H 100 04/29/16 07:58 04/29/16 07:58 04/29/16 07:58 04/29/16 07:58 04/29/16 07:58 Intake & Output 04/27/16 04/28/16 04/29/16 23:59 23:59 23:59 Intake Total 935 1195 Balance 935 1195 Weight 44.8 kg 47.6 kg General appearance: PRESENT: disheveled, thin, other - Frail, chronically ill- appearing, emaceated, cachectic Head exam: PRESENT: atraumatic, normocephalic Eye exam: PRESENT: conjunctiva pale. ABSENT: scleral icterus Ear exam: PRESENT: normal external ear exam Mouth exam: PRESENT: moist Neck exam: ABSENT: carotid bruit, JVD, lymphadenopathy, tenderness, thyromegaly , tracheal deviation, tracheostomy Respiratory exam: PRESENT: decreased breath sounds, symmetrical, unlabored. ABSENT: tachypnea Cardiovascular exam: PRESENT: bradycardia, RRR Pulses: PRESENT: +1 pedal pulses bilateral Vascular exam: PRESENT: pallor GI/Abdominal exam: PRESENT: soft. ABSENT: distended, guarding, rigid Rectal exam: PRESENT: deferred Extremities exam: ABSENT: pedal edema Musculoskeletal exam: ABSENT: ambulatory Neurological exam: PRESENT: alert, awake, other - Garbled speech. ABSENT: CN II -XII grossly intact, motor sensory deficit Psychiatric exam: ABSENT: anxious, appropriate affect Skin exam: PRESENT: dry, mottled, pallor, other - Extensive cuticle fungi noted on digits of upper extremity. ABSENT: cyanosis, erythema Results Laboratory Results: 04/28/16 06:29 04/28/16 06:29 04/28/16 06:29 Free T4 1.82 Free T3 pg/mL 1.44 L 04/28/16 06:29 Troponin I 0.070 Impressions: Chest X-Ray 04/27/16 20:50 IMPRESSION: CHRONIC INTERSTITIAL CHANGES. THE PERIPHERAL LUCENCY IN THE LEFT LUNG BASE PERSISTS AND MAY BE ARTIFACT THE LINEAR SHADOW DOES EXTEND FROM THE MID CHEST TO BELOW THE DIAPHRAGM, SUGGESTING OVERLYING SKIN FOLD. HOWEVER, CANNOT DEFINITELY CONFIRM THE PRESENCE OF LUNG MARKINGS PERIPHERALLY IN THE LEFT BASE. CANNOT COMPLETELY EXCLUDE POSSIBILITY OF AN ATYPICAL PNEUMOTHORAX. NONCONTRAST CT MAY BE CONSIDERED TO PROVIDE DEFINITIVE EVALUATION. Chest CT 04/27/16 21:50 IMPRESSION: 1. NO PNEUMOTHORAX. THE FINDING ON THE CHEST X-RAY IS APPARENTLY ARTIFACT DUE TO OVERLYING SKIN FOLD. 2. 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 3. COPD WITH CHRONIC PARENCHYMAL SCARRING. NO ACUTE FINDINGS IN THE CHEST. Assessment & Plan - Diagnosis (1) Pulmonary nodules/lesions, multiple Is this a current diagnosis for this admission?: YesPlan: I spoke with Dr. Dodge with oncology as well as the patient's . According to the patient's the patient had unknown skin cancer removed from her head about 2 years ago. Is unable to confirm whether or not this was melanoma. The patient's stated that a PET scan was done 5 years ago which was negative. Shared this information oncology which also communicated with radiology and review of the PET scan done in [place] 5 years ago reveals that none of these nodules have changed. Will forego metastatic workup. (2) Malnutrition Is this a current diagnosis for this admission?: YesPlan: This appears to be severe. The patient's BMI is 18. According to the the patient mainly receives PEG feedings however for her satiety they do give her oral foods although they are aware that she may be aspirating. The patient' s management has been thus far palliative. I have recommended SNIF placement. If the family is not agreeable to this possibly consider APS evaluation given the unkept nature of the patient. 04/27/16 19:04 Albumin 2.8 L (3) Dehydration with hypernatremia Is this a current diagnosis for this admission?: YesPlan: Continue to gently hydrate. Continue free water flushes this appears to be a free water deficit. (4) Elevated troponin Is this a current diagnosis for this admission?: Yes (5) HTN (hypertension) Qualifiers: Hypertension type: essential hypertension Qualified Code(s): I10 - Essential (primary) hypertension Is this a current diagnosis for this admission?: YesPlan: Have discontinued calcium channel kristen. Will increase ARB. (6) Hypothyroid Qualifiers: Hypothyroidism type: unspecified Qualified Code(s): E03.9 - Hypothyroidism, unspecified Is this a current diagnosis for this admission?: YesPlan: The patient's T4 is also low. Did increase Synthroid. (7) UTI (urinary tract infection) Qualifiers: Urinary tract infection type: site unspecified Hematuria presence: without hematuria Qualified Code(s): N39.0 - Urinary tract infection, site not specified Is this a current diagnosis for this admission?: YesPlan: Will await culture continue current antibiotic coverage (8) Sacral decubitus ulcer Qualifiers: Pressure ulcer stage: unspecified pressure ulcer stage Qualified Code(s ): L89.159 - Pressure ulcer of sacral region, unspecified stage Is this a current diagnosis for this admission?: YesPlan: Frequent turns. Continue wound VAC. Do appreciate surgicalist input with this. (9) Overgrown toenails Is this a current diagnosis for this admission?: YesPlan: The patient also has extensive nail fungi. (10) Bradycardia Is this a current diagnosis for this admission?: YesPlan: Uncertain of the exact etiology of this. Most likely this is chronic. Will start the patient on Cymbalta which should help this as well as the patient's pain from her decubiti. (11) PEG (percutaneous endoscopic gastrostomy) status Is this a current diagnosis for this admission?: Yes (12) Do not resuscitate Is this a current diagnosis for this admission?: Yes (13) Pain Is this a current diagnosis for this admission?: YesPlan: This is in the patient's sacral wound. Will start the patient on liquid morphine. - Time Time Spent with patient: on this visit including assessment, plan, physical examination, and patient education is 25 minutes. Time Spent with patient: 25-34 minutes Medications reviewed and adjusted accordingly: Yes Anticipated discharge: SNF Within: when bed available Disposition: The patient is a DO NOT RESUSCITATE DO NOT INTUBATE. Pending patient's symptomatology and diagnostic findings will reevaluate as needed.
[2016-04-29] MEDS ORDERED: POLYETHYLENE GLYCOL PEG SCH (10:00)
[2016-04-29] MEDS ORDERED: AMLODIPINE BESYLATE 10 MG TABLET PEG SCH (10:00)
[2016-04-29] MEDS ORDERED: LEVOTHYROXINE SODIUM 0.1 MG TABLET PEG SCH (10:00)
[2016-04-29] MEDS ORDERED: (PENDING PHARMACY ID) (Rosuvastatin Calcium [Crestor] 40 MG) PEG SCH (10:00)
[2016-04-29] MEDS ORDERED: (PENDING PHARMACY ID) (Esomeprazole Mag Trihydrate [Nexium] 40 MG) PEG SCH (10:00)
[2016-04-29] MEDS ORDERED: LOSARTAN POTASSIUM 50 MG TABLET PEG SCH (10:00)
[2016-04-29] MEDS: LEVOTHYROXINE SODIUM 0.05 MG TABLET PO SCH (10:42)
[2016-04-29] MEDS: FUROSEMIDE 20 MG TABLET PEG SCH (10:42)
[2016-04-29] MEDS: DULOXETINE HCL 30 MG CAPSULE.DR PO SCH (10:42)
[2016-04-29] MEDS: CYANOCOBALAMIN (VITAMIN B-12) 1,000 MCG TABLET PEG SCH (10:42)
[2016-04-29] MEDS: ASPIRIN 81 MG TABLET, CHEWABLE PEG SCH (10:42)
[2016-04-29] MEDS: LOSARTAN POTASSIUM 50 MG TABLET PEG SCH ×2 (10:43→23:08)
[2016-04-29 11:11] LABS: ANION GAP 10 (5-19); BLOOD UREA NITROGEN 25 mg/dL (7-20); CALCIUM 9.9 mg/dL (8.4-10.2); CARBON DIOXIDE 23 mmol/L (22-30); CHLORIDE 113 mmol/L (98-107); GLUCOSE 156 mg/dL (75-110); MAGNESIUM 2.2 mg/dL (1.6-2.3); POTASSIUM 4.1 mmol/L (3.6-5.0); SODIUM 146.1 mmol/L (137-145)
[2016-04-29] MEDS: METOCLOPRAMIDE HCL ORAL SOLN 10 MG/10 ML UDCUP PEG SCH ×2 (13:34→23:08)
[2016-04-29] MEDS ORDERED: (PENDING PHARMACY ID) (Metoclopramide Hcl [Metoclopramide Hcl] 5 MG) PEG SCH (14:00)
[2016-04-29] MEDS ORDERED: (PENDING PHARMACY ID) (Sennosides [Senna] 8.6 MG) PEG SCH (22:00)
[2016-04-29] MEDS: ATORVASTATIN CALCIUM 80 MG TABLET PEG SCH (23:08)
[2016-04-29] MEDS: INSULIN GLARGINE,HUM.REC.ANLOG 300 UNIT/3 ML INSULN.PEN SUBCUT SCH (23:09)
[2016-04-30] MEDS: PIPERACILLIN SODIUM/TAZOBACTAM 3.375 GM in NORMAL SALINE 100 ML IV SCH ×4 (00:10→17:52)
[2016-04-30] MEDS: METOCLOPRAMIDE HCL ORAL SOLN 10 MG/10 ML UDCUP PEG SCH ×3 (06:05→21:51)
[2016-04-30] MEDS: LANSOPRAZOLE 30 MG TAB.RAP.DR PEG SCH (08:27)
[2016-04-30] MEDS: LOSARTAN POTASSIUM 50 MG TABLET PEG SCH ×2 (09:37→21:51)
[2016-04-30] MEDS: ASPIRIN 81 MG TABLET, CHEWABLE PEG SCH (09:37)
[2016-04-30] MEDS: FUROSEMIDE 20 MG TABLET PEG SCH (09:37)
[2016-04-30] MEDS: DULOXETINE HCL 30 MG CAPSULE.DR PO SCH (09:37)
[2016-04-30] MEDS: LEVOTHYROXINE SODIUM 0.05 MG TABLET PO SCH (09:37)
[2016-04-30] MEDS: CYANOCOBALAMIN (VITAMIN B-12) 1,000 MCG TABLET PEG SCH (09:38)
[2016-04-30] MEDS: POLYETHYLENE GLYCOL 3350 POWDER 17 GM/1 PACKET PEG SCH (09:38)
--- NOTE | 2016-04-30 10:10 | PDOC PROGRESS REPORT ---
Subjective Progress Note for:: 04/30/16 Subjective:: The patient is currently lying in bed. The patient is unable to provide any history and mainly answers yes or no. Through the patient's garbled speech I was able to make out that her but was feeling better". Blood pressures have been in a good range. The patient appears to be persistently bradycardic in the 50s and improved with Cymbalta. Norvasc has been stopped. The patient voices no other concerns at this time. Review of systems: A full review of systems is unobtainable given the patient's status. Physical Exam Vital Signs: Temp Pulse Resp BP Pulse Ox 97.5 F 54 L 18 185/55 H 100 04/30/16 07:43 04/30/16 07:43 04/30/16 07:43 04/30/16 07:43 04/30/16 07:43 Intake & Output 04/28/16 04/29/16 04/30/16 23:59 23:59 23:59 Intake Total 935 2983 516 Balance 935 2983 516 Weight 44.8 kg 47.6 kg 48.9 kg General appearance: PRESENT: disheveled, thin, other - Frail, chronically ill- appearing, emaceated, cachectic Head exam: PRESENT: atraumatic, normocephalic Eye exam: PRESENT: conjunctiva pale. ABSENT: scleral icterus Ear exam: PRESENT: normal external ear exam Mouth exam: PRESENT: moist Neck exam: ABSENT: carotid bruit, JVD, lymphadenopathy, tenderness, thyromegaly , tracheal deviation, tracheostomy Respiratory exam: PRESENT: decreased breath sounds, symmetrical, unlabored. ABSENT: tachypnea Cardiovascular exam: PRESENT: bradycardia, RRR Pulses: PRESENT: +1 pedal pulses bilateral Vascular exam: PRESENT: pallor GI/Abdominal exam: PRESENT: soft. ABSENT: distended, guarding, rigid Rectal exam: PRESENT: deferred Extremities exam: ABSENT: pedal edema Musculoskeletal exam: ABSENT: ambulatory Neurological exam: PRESENT: alert, awake, other - Garbled speech. ABSENT: CN II -XII grossly intact, motor sensory deficit Psychiatric exam: ABSENT: anxious, appropriate affect Skin exam: PRESENT: dry, mottled, pallor, other - Extensive cuticle fungi noted on digits of upper extremity. ABSENT: cyanosis, erythema Results Laboratory Results: 04/28/16 06:29 04/29/16 10:23 04/29/16 10:23 Sodium 146.1 H Potassium 4.1 Chloride 113 H Carbon Dioxide 23 Anion Gap 10 BUN 25 H Creatinine 0.50 L Est GFR ( Amer) > 60 Est GFR (Non-Af Amer) > 60 Glucose 156 H Calcium 9.9 Magnesium 2.2 04/28/16 06:29 Troponin I 0.070 Impressions: Chest X-Ray 04/27/16 20:50 IMPRESSION: CHRONIC INTERSTITIAL CHANGES. THE PERIPHERAL LUCENCY IN THE LEFT LUNG BASE PERSISTS AND MAY BE ARTIFACT THE LINEAR SHADOW DOES EXTEND FROM THE MID CHEST TO BELOW THE DIAPHRAGM, SUGGESTING OVERLYING SKIN FOLD. HOWEVER, CANNOT DEFINITELY CONFIRM THE PRESENCE OF LUNG MARKINGS PERIPHERALLY IN THE LEFT BASE. CANNOT COMPLETELY EXCLUDE POSSIBILITY OF AN ATYPICAL PNEUMOTHORAX. NONCONTRAST CT MAY BE CONSIDERED TO PROVIDE DEFINITIVE EVALUATION. Chest CT 04/27/16 21:50 IMPRESSION: 1. NO PNEUMOTHORAX. THE FINDING ON THE CHEST X-RAY IS APPARENTLY ARTIFACT DUE TO OVERLYING SKIN FOLD. 2. 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 3. COPD WITH CHRONIC PARENCHYMAL SCARRING. NO ACUTE FINDINGS IN THE CHEST. Assessment & Plan - Diagnosis (1) Pulmonary nodules/lesions, multiple Is this a current diagnosis for this admission?: YesPlan: I spoke with Dr. Dodge with oncology as well as the patient's . According to the patient's the patient had unknown skin cancer removed from her head about 2 years ago. Is unable to confirm whether or not this was melanoma. The patient's stated that a PET scan was done 5 years ago which was negative. Shared this information oncology which also communicated with radiology and review of the PET scan done in [place] 5 years ago reveals that none of these nodules have changed. Will forego metastatic workup. (2) Malnutrition Is this a current diagnosis for this admission?: YesPlan: This appears to be severe. The patient's BMI is 18. According to the the patient mainly receives PEG feedings however for her satiety they do give her oral foods although they are aware that she may be aspirating. The patient' s management has been thus far palliative. I have recommended SNIF placement. If the family is not agreeable to this possibly consider APS evaluation given the unkept nature of the patient. 04/27/16 19:04 Albumin 2.8 L (3) Dehydration with hypernatremia Is this a current diagnosis for this admission?: YesPlan: Continue to gently hydrate. Continue free water flushes this appears to be a free water deficit. (4) Elevated troponin Is this a current diagnosis for this admission?: Yes (5) HTN (hypertension) Qualifiers: Hypertension type: essential hypertension Qualified Code(s): I10 - Essential (primary) hypertension Is this a current diagnosis for this admission?: YesPlan: Have discontinued calcium channel kristen. Will increase ARB. (6) Hypothyroid Qualifiers: Hypothyroidism type: unspecified Qualified Code(s): E03.9 - Hypothyroidism, unspecified Is this a current diagnosis for this admission?: YesPlan: The patient's T4 is also low. Did increase Synthroid. (7) UTI (urinary tract infection) Qualifiers: Urinary tract infection type: site unspecified Hematuria presence: without hematuria Qualified Code(s): N39.0 - Urinary tract infection, site not specified Is this a current diagnosis for this admission?: YesPlan: Will await culture continue current antibiotic coverage (8) Sacral decubitus ulcer Qualifiers: Pressure ulcer stage: unspecified pressure ulcer stage Qualified Code(s ): L89.159 - Pressure ulcer of sacral region, unspecified stage Is this a current diagnosis for this admission?: YesPlan: Frequent turns. Continue wound VAC. Do appreciate surgicalist input with this. (9) Overgrown toenails Is this a current diagnosis for this admission?: YesPlan: The patient also has extensive nail fungi. (10) Bradycardia Is this a current diagnosis for this admission?: YesPlan: Uncertain of the exact etiology of this. Most likely this is chronic. Will start the patient on Cymbalta which should help this as well as the patient's pain from her decubiti. (11) PEG (percutaneous endoscopic gastrostomy) status Is this a current diagnosis for this admission?: Yes (12) Do not resuscitate Is this a current diagnosis for this admission?: Yes (13) Pain Is this a current diagnosis for this admission?: YesPlan: This is in the patient's sacral wound. Will start the patient on liquid morphine. - Time Time Spent with patient: 25-34 minutes Medications reviewed and adjusted accordingly: Yes Anticipated discharge: SNF Within: when bed available
[2016-04-30] MEDS: HYDRALAZINE HCL INJ/PF 20 MG/1 ML SDV IV PRN (12:07)
[2016-04-30] MEDS: HYDRALAZINE HCL 25 MG TABLET PO SCH ×2 (13:37→21:51)
[2016-04-30] MEDS: ATORVASTATIN CALCIUM 80 MG TABLET PEG SCH (21:50)
[2016-04-30] MEDS: INSULIN GLARGINE,HUM.REC.ANLOG 300 UNIT/3 ML INSULN.PEN SUBCUT SCH (21:51)
[2016-05-01] MEDS: HYDRALAZINE HCL INJ/PF 20 MG/1 ML SDV IV PRN (01:37)
[2016-05-01] MEDS: PIPERACILLIN SODIUM/TAZOBACTAM 3.375 GM in NORMAL SALINE 100 ML IV SCH ×3 (01:37→11:55)
[2016-05-01] MEDS: METOCLOPRAMIDE HCL ORAL SOLN 10 MG/10 ML UDCUP PEG SCH ×3 (05:14→23:00)
[2016-05-01] MEDS: HYDRALAZINE HCL 25 MG TABLET PO SCH ×3 (05:14→23:00)
[2016-05-01] MEDS: FUROSEMIDE 20 MG TABLET PEG SCH (09:42)
[2016-05-01] MEDS: CYANOCOBALAMIN (VITAMIN B-12) 1,000 MCG TABLET PEG SCH (09:42)
[2016-05-01] MEDS: LEVOTHYROXINE SODIUM 0.05 MG TABLET PO SCH (09:42)
[2016-05-01] MEDS: LOSARTAN POTASSIUM 50 MG TABLET PEG SCH ×2 (09:42→23:00)
[2016-05-01] MEDS: ASPIRIN 81 MG TABLET, CHEWABLE PEG SCH (09:42)
[2016-05-01] MEDS: LANSOPRAZOLE 30 MG TAB.RAP.DR PEG SCH (09:42)
[2016-05-01] MEDS: DULOXETINE HCL 30 MG CAPSULE.DR PO SCH (09:42)
[2016-05-01] MEDS: POLYETHYLENE GLYCOL 3350 POWDER 17 GM/1 PACKET PEG SCH (09:43)
[2016-05-01 10:57] LABS: ANION GAP 8 (5-19); BLOOD UREA NITROGEN 17 mg/dL (7-20); CALCIUM 9.5 mg/dL (8.4-10.2); CARBON DIOXIDE 27 mmol/L (22-30); CHLORIDE 112 mmol/L (98-107); CREATININE RESULT 0.45 mg/dL (0.52-1.25); GLUCOSE 123 mg/dL (75-110); POTASSIUM 3.1 mmol/L (3.6-5.0); SODIUM 147.1 mmol/L (137-145)
--- NOTE | 2016-05-01 14:51 | PDOC PROGRESS REPORT ---
Subjective Progress Note for:: 05/01/16 Subjective:: The patient is currently lying in bed. The patient's is present bedside and active in the patient's care. The patient is unable to provide any history and mainly answers yes or no. . Blood pressures have been in a good range. The cardia has resolved. Norvasc has been stopped. The patient voices no other concerns at this time. Review of systems: A full review of systems is unobtainable given the patient's status. Physical Exam Vital Signs: Temp Pulse Resp BP Pulse Ox 98.0 F 72 18 138/50 H 100 05/01/16 11:22 05/01/16 11:22 05/01/16 11:22 05/01/16 11:22 05/01/16 11:22 Intake & Output 04/29/16 04/30/16 05/01/16 23:59 23:59 23:59 Intake Total 2983 1552 1086 Balance 2983 1552 1086 Weight 47.6 kg 48.9 kg 48.4 kg General appearance: PRESENT: disheveled, thin, other - Frail, chronically ill- appearing, emaceated, cachectic Head exam: PRESENT: atraumatic, normocephalic Eye exam: PRESENT: conjunctiva pale. ABSENT: scleral icterus Ear exam: PRESENT: normal external ear exam Mouth exam: PRESENT: moist Neck exam: ABSENT: carotid bruit, JVD, lymphadenopathy, tenderness, thyromegaly , tracheal deviation, tracheostomy Respiratory exam: PRESENT: decreased breath sounds, symmetrical, unlabored. ABSENT: tachypnea Cardiovascular exam: PRESENT: bradycardia, RRR Pulses: PRESENT: +1 pedal pulses bilateral Vascular exam: PRESENT: pallor GI/Abdominal exam: PRESENT: soft. ABSENT: distended, guarding, rigid Rectal exam: PRESENT: deferred Extremities exam: ABSENT: pedal edema Musculoskeletal exam: ABSENT: ambulatory Neurological exam: PRESENT: alert, awake, other - Garbled speech. ABSENT: CN II -XII grossly intact, motor sensory deficit Psychiatric exam: ABSENT: anxious, appropriate affect Skin exam: PRESENT: dry, mottled, pallor, other - Extensive cuticle fungi noted on digits of upper extremity. ABSENT: cyanosis, erythema Results Laboratory Results: 04/28/16 06:29 05/01/16 10:07 05/01/16 10:07 Sodium 147.1 H Potassium 3.1 L Chloride 112 H Carbon Dioxide 27 Anion Gap 8 BUN 17 Creatinine 0.45 L Est GFR ( Amer) > 60 Est GFR (Non-Af Amer) > 60 Glucose 123 H Calcium 9.5 04/28/16 06:29 Troponin I 0.070 Impressions: Chest X-Ray 04/27/16 20:50 IMPRESSION: CHRONIC INTERSTITIAL CHANGES. THE PERIPHERAL LUCENCY IN THE LEFT LUNG BASE PERSISTS AND MAY BE ARTIFACT THE LINEAR SHADOW DOES EXTEND FROM THE MID CHEST TO BELOW THE DIAPHRAGM, SUGGESTING OVERLYING SKIN FOLD. HOWEVER, CANNOT DEFINITELY CONFIRM THE PRESENCE OF LUNG MARKINGS PERIPHERALLY IN THE LEFT BASE. CANNOT COMPLETELY EXCLUDE POSSIBILITY OF AN ATYPICAL PNEUMOTHORAX. NONCONTRAST CT MAY BE CONSIDERED TO PROVIDE DEFINITIVE EVALUATION. Chest CT 04/27/16 21:50 IMPRESSION: 1. NO PNEUMOTHORAX. THE FINDING ON THE CHEST X-RAY IS APPARENTLY ARTIFACT DUE TO OVERLYING SKIN FOLD. 2. 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 3. COPD WITH CHRONIC PARENCHYMAL SCARRING. NO ACUTE FINDINGS IN THE CHEST. Assessment & Plan - Diagnosis (1) UTI due to extended-spectrum beta lactamase (ESBL) producing Escherichia coli Is this a current diagnosis for this admission?: YesPlan: Will transition to IV ertapenem. It is sensetive to Bactrim. Will discharge on Bactrim X 10 more days (2) Pulmonary nodules/lesions, multiple Is this a current diagnosis for this admission?: YesPlan: I spoke with Dr. Dodge with oncology as well as the patient's . The patient's stated that a PET scan was done 5 years ago which was negative. Shared this information oncology which also communicated with radiology and review of the PET scan done in [place] 5 years ago reveals that none of these nodules have changed. Will forego metastatic workup. (3) Malnutrition Is this a current diagnosis for this admission?: YesPlan: This appears to be severe. The patient's BMI is 18. According to the the patient mainly receives PEG feedings however for her satiety they do give her oral foods although they are aware that she may be aspirating. The patient' s management has been thus far palliative. I have recommended SNIF placement. If the family is not agreeable to this possibly consider APS evaluation given the unkept nature of the patient. 04/27/16 19:04 Albumin 2.8 L (4) Dehydration with hypernatremia Is this a current diagnosis for this admission?: YesPlan: Continue free water flushes this appears to be a free water deficit. Will increase free water to 250 mL every 6 hours. (5) Elevated troponin Is this a current diagnosis for this admission?: Yes (6) HTN (hypertension) Qualifiers: Hypertension type: essential hypertension Qualified Code(s): I10 - Essential (primary) hypertension Is this a current diagnosis for this admission?: YesPlan: Have discontinued calcium channel kristen. Will increase ARB. (7) Hypothyroid Qualifiers: Hypothyroidism type: unspecified Qualified Code(s): E03.9 - Hypothyroidism, unspecified Is this a current diagnosis for this admission?: YesPlan: The patient's T4 is also low. Did increase Synthroid. (8) Sacral decubitus ulcer Qualifiers: Pressure ulcer stage: unspecified pressure ulcer stage Qualified Code(s ): L89.159 - Pressure ulcer of sacral region, unspecified stage Is this a current diagnosis for this admission?: YesPlan: Frequent turns. Continue wound VAC. Do appreciate surgicalist input with this. (9) Overgrown toenails Is this a current diagnosis for this admission?: YesPlan: The patient also has extensive nail fungi. (10) Bradycardia Is this a current diagnosis for this admission?: YesPlan: Resolved with Cymbalta (11) PEG (percutaneous endoscopic gastrostomy) status Is this a current diagnosis for this admission?: Yes (12) Do not resuscitate Is this a current diagnosis for this admission?: Yes (13) Pain Is this a current diagnosis for this admission?: YesPlan: This is in the patient's sacral wound. Will continue when necessary liquid morphine. - Time Time Spent with patient: on this visit including assessment, plan, physical examination, family meeting, and specialty collaboration, and patient education is 35 minutes. Time Spent with patient: 35 or more minutes Medications reviewed and adjusted accordingly: Yes Anticipated discharge: SNF Within: within 24 hours Disposition: The patient is a DO NOT RESUSCITATE DO NOT INTUBATE. Pending patient's symptomatology and diagnostic findings will reevaluate as needed.
[2016-05-01] MEDS: POTASSIUM CHLORIDE 20 MEQ/15 ML UDCUP PEG SCH ×2 (16:54→18:42)
[2016-05-01] MEDS: ATORVASTATIN CALCIUM 80 MG TABLET PEG SCH (23:00)
[2016-05-01] MEDS: INSULIN GLARGINE,HUM.REC.ANLOG 300 UNIT/3 ML INSULN.PEN SUBCUT SCH (23:30)
[2016-05-02] MEDS: HYDRALAZINE HCL 25 MG TABLET PO SCH (06:00)
[2016-05-02] MEDS: METOCLOPRAMIDE HCL ORAL SOLN 10 MG/10 ML UDCUP PEG SCH (06:00)
[2016-05-02 07:50] VITALS: BP 153/71
--- NOTE | 2016-05-02 08:53 | PDOC TRANSFER SUMMARY ---
General - Admit/Disc Date/PCP Admission Date/Primary Care Provider: 04/28/16 05:07 [facility] provider: [facility] Discharge Date: 05/02/16 - Discharge Diagnosis (1) UTI due to extended-spectrum beta lactamase (ESBL) producing Escherichia coli Is this a current diagnosis for this admission?: Yes (2) Sacral decubitus ulcer, stage III Is this a current diagnosis for this admission?: YesSummary: Present on admission with wound VAC in place. (3) Malnutrition Is this a current diagnosis for this admission?: Yes (4) Dehydration with hypernatremia Is this a current diagnosis for this admission?: Yes (5) HTN (hypertension) Is this a current diagnosis for this admission?: Yes (6) Hypothyroid Is this a current diagnosis for this admission?: YesSummary: Adjustment has been made a levothyroxin the patient will need repeat labs in 6 weeks. (7) Pulmonary nodules/lesions, multiple Is this a current diagnosis for this admission?: Yes (8) Bradycardia Is this a current diagnosis for this admission?: YesSummary: Resolved (9) Overgrown toenails Is this a current diagnosis for this admission?: Yes (10) PEG (percutaneous endoscopic gastrostomy) status Is this a current diagnosis for this admission?: Yes (11) Hypokalemia Is this a current diagnosis for this admission?: YesSummary: This is been supplemented (12) Do not resuscitate Is this a current diagnosis for this admission?: Yes - Additional Information Resuscitation Status: Do Not Resuscitate - DO NOT RESUSCITATE DO NOT INTUBATE Discharge Diet: Tube Feeding (Comments) - Glucerna 1.5 @ 50cc/hour. Free water flushes 250cc q6hrs. Discharge Activity: Other - Turn patient every 2 hours Home Medications: Aspirin 81 mg PEG DAILY 12/26/14 Cyanocobalamin (Vitamin B-12) [B-12] 1,000 mcg PEG DAILY 12/26/14 Esomeprazole Mag Trihydrate [Nexium] 40 mg PEG DAILY 12/26/14 Furosemide [Lasix 20 mg Tablet] 10 mg PEG DAILY 12/26/14 Metformin HCl [Glucophage] 1,000 mg PEG Q12 12/26/14 Rosuvastatin Calcium [Crestor] 40 mg PEG DAILY #30 12/30/14 Sennosides [Senna] 8.6 mg PEG QHS #30 12/30/14 Insulin Glargine,Hum.rec.anlog [Lantus Solostar] 10 unit SQ QHS 04/28/16 Metoclopramide HCl 5 mg PEG Q8 04/28/16 Polyethylene Glycol 3350 [Polyethylene Glycol] 1 cap PEG DAILY 04/28/16 Duloxetine HCl [Cymbalta] 60 mg PO DAILY #1 capsule. 05/02/16 Hydralazine HCl [Apresoline 25 mg Tablet] 25 mg PO Q8 tablet 05/02/16 Levothyroxine Sodium [Synthroid 0.05 mg Tablet] 0.125 mg PO DAILY tablet Losartan Potassium [Cozaar 50 mg Tablet] 50 mg PEG Q12 tablet 05/02/16 Morphine Sulfate [Morphine 10 mg/5 ml Oral Soln Udcup] 10 mg PO Q4HP PRN #20 udc 05/02/16 Sulfamethoxazole/Trimethoprim [Bactrim Ds Tablet] 1 each PO BID #16 tablet 05/02 History of Present Illness Admission Date/PCP: 04/28/16 05:07 Patient complains of: Difficulty breathing History of Present Illness: MENDEL HEADLEY is an unfortunate 76 year old female with chronic indwelling PEG tube, along with multiple chronic comorbidities, who presents to the emergency room for evaluation of difficulty breathing. Patient is almost completely aphasic and was unable to provide any history whatsoever in terms of acute or chronic events, review of systems, personal habits, family history, etc. No friends or family are present. Old inpatient records are reviewed. Patient's only verbal response is "no" when asked if she is having pain. She also stated that she was "cold." While her eyes did follow the examiner, she was otherwise minimally interactive. No outward distress other than somewhat anxious. Per emergency room physician notes, EMS was called for difficulty breathing, with initial oxygen saturation in the 70 percentile range. The patient had findings consistent of urinary tract infection and SIRS. The patient was referred to the hospitalist for admission and management. Hospital Course Hospital Course: The patient was admitted to [facility]. Urine analysis and culture was obtained. The patient had findings suggestive of a urinary tract infection. Patient's urine culture revealed ESBL Escherichia coli which was sensitive to Bactrim, ertapenem, and Zosyn and the patient received antibiotic coverage. At the time of discharge the patient has received 5 days of IV antibiotic coverage and will be transitioned to Bactrim by PEG given the sensitivity. Patient was noted to have an Approximately 2 cm stage III sacral decubitus ulcer about 2 cm deep that appears very clean with granulation tissue with no surrounding erythema nor induration. Wound VAC is in place. The patient was seen and evaluated by surgery and recommendations were made to continue wound vacuum for the patient to follow-up with outpatient wound management. Patient does have a significant amount of pain associated with this wound and was started on morphine via PEG. Shouldn't does have relief of pain with this medication. The patient had a chest CT which was suggestive of multiple pulmonary nodules with no documented history of malignancy. I spoke with Dr. Dodge with oncology as well as the patient's . The patient's stated that a PET scan was done 5 years ago which was negative. Shared this information oncology which also communicated with radiology and review of the PET scan done in [place] 5 years ago reveals that none of these nodules have changed. Will forego metastatic workup. Once the patient was hydrated and was noted to have hypokalemia. This has been repleted. The patient was also noted to have a nonsymptomatic bradycardia during her stay. Patient was started on Cymbalta which did improve this. The patient's symptoms completely resolved she is back to baseline. Physical Exam Vital Signs: Temp Pulse Resp BP Pulse Ox 98.1 F 68 16 153/71 H 97 05/02/16 07:43 05/02/16 07:43 05/02/16 07:43 05/02/16 07:43 05/02/16 07:43 Intake & Output 04/30/16 05/01/16 05/02/16 23:59 23:59 23:59 Intake Total 1552 1891 420 Balance 1552 1891 420 Weight 48.9 kg 48.4 kg 48.7 kg General appearance: PRESENT: disheveled, thin, other - Frail, chronically ill- appearing, emaceated, cachectic Head exam: PRESENT: atraumatic, normocephalic Eye exam: PRESENT: conjunctiva pale. ABSENT: scleral icterus Ear exam: PRESENT: normal external ear exam Mouth exam: PRESENT: moist Neck exam: ABSENT: carotid bruit, JVD, lymphadenopathy, tenderness, thyromegaly , tracheal deviation, tracheostomy Respiratory exam: PRESENT: decreased breath sounds, symmetrical, unlabored. ABSENT: tachypnea Cardiovascular exam: PRESENT: bradycardia, RRR Pulses: PRESENT: +1 pedal pulses bilateral Vascular exam: PRESENT: pallor GI/Abdominal exam: PRESENT: soft. ABSENT: distended, guarding, rigid Rectal exam: PRESENT: deferred Extremities exam: ABSENT: pedal edema Musculoskeletal exam: ABSENT: ambulatory Neurological exam: PRESENT: alert, awake, other - Garbled speech. ABSENT: CN II -XII grossly intact, motor sensory deficit Psychiatric exam: ABSENT: anxious, appropriate affect Skin exam: PRESENT: dry, mottled, pallor, other - Extensive cuticle fungi noted on digits of upper extremity. Stage III sacral wound VAC in place. ABSENT: cyanosis, erythema Results Laboratory Results: 04/27/16 04/27/16 04/27/16 19:04 19:04 19:04 WBC Hgb Hct MCV MCH Plt Count VBG pH 7.45 H VBG pCO2 44.6 VBG HCO3 30.0 Sodium Potassium Chloride Carbon Dioxide Anion Gap BUN Creatinine Glucose Calcium Magnesium Total Bilirubin 0.4 AST 15 ALT 12 Alkaline Phosphatase 72 Creatine Kinase < 20 L CK-MB (CK-2) 0.63 Troponin I 0.046 NT-Pro-B Natriuret Pep 4140 H Total Protein 6.0 L Albumin 2.8 L TSH Free T3 pg/mL 04/28/16 04/28/16 04/28/16 06:29 06:29 06:29 WBC 7.2 Hgb 11.1 L Hct 33.5 L MCV 82 MCH 27.2 Plt Count 173 VBG pH VBG pCO2 VBG HCO3 Sodium Potassium Chloride Carbon Dioxide Anion Gap BUN Creatinine Glucose Calcium Magnesium Total Bilirubin AST ALT Alkaline Phosphatase Creatine Kinase CK-MB (CK-2) Troponin I NT-Pro-B Natriuret Pep Total Protein Albumin TSH 0.37 L Free T3 pg/mL 1.44 L 04/29/16 10:23 WBC Hgb Hct MCV MCH Plt Count VBG pH VBG pCO2 VBG HCO3 Sodium 146.1 H Potassium 4.1 Chloride 113 H Carbon Dioxide 23 Anion Gap 10 BUN 25 H Creatinine 0.50 L Glucose 156 H Calcium 9.9 Magnesium 2.2 Total Bilirubin AST ALT Alkaline Phosphatase Creatine Kinase CK-MB (CK-2) Troponin I NT-Pro-B Natriuret Pep Total Protein Albumin TSH Free T3 pg/mL 04/27/16 20:55 Blood Culture - Preliminary Blood NO GROWTH 4 DAYS 04/27/16 19:04 Urine Culture - Final Catheterized Urine Escherichia Coli Esbl 04/27/16 19:04 Blood Culture - Preliminary Blood NO GROWTH 4 DAYS Impressions: Chest X-Ray 04/27/16 20:50 IMPRESSION: CHRONIC INTERSTITIAL CHANGES. THE PERIPHERAL LUCENCY IN THE LEFT LUNG BASE PERSISTS AND MAY BE ARTIFACT THE LINEAR SHADOW DOES EXTEND FROM THE MID CHEST TO BELOW THE DIAPHRAGM, SUGGESTING OVERLYING SKIN FOLD. HOWEVER, CANNOT DEFINITELY CONFIRM THE PRESENCE OF LUNG MARKINGS PERIPHERALLY IN THE LEFT BASE. CANNOT COMPLETELY EXCLUDE POSSIBILITY OF AN ATYPICAL PNEUMOTHORAX. NONCONTRAST CT MAY BE CONSIDERED TO PROVIDE DEFINITIVE EVALUATION. Chest CT 04/27/16 21:50 IMPRESSION: 1. NO PNEUMOTHORAX. THE FINDING ON THE CHEST X-RAY IS APPARENTLY ARTIFACT DUE TO OVERLYING SKIN FOLD. 2. 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 3. COPD WITH CHRONIC PARENCHYMAL SCARRING. NO ACUTE FINDINGS IN THE CHEST. Transfer Plan - Disposition Transfer Plan: The patient is to follow-up with wound care within 1-2 weeks for follow-up. Patient is advised follow-up primary care within one week for hospital follow- up. Do recommend repeat chemistries given the patient's recent dehydration. - Time Spent with Patient Time spent with patient: Greater than 30 Minutes Qualifiers PATEINT BEING DISCHARGED WITH ANY OF THE FOLLOWING DIAGNOSIS?: No
[2016-05-02] MEDS ORDERED: ERTAPENEM SODIUM 1 GM in NORMAL SALINE 50 ML IV ONE (09:30)
[2016-05-02] MEDS: POLYETHYLENE GLYCOL 3350 POWDER 17 GM/1 PACKET PEG SCH (09:43)
[2016-05-02] MEDS: FUROSEMIDE 20 MG TABLET PEG SCH (09:44)
[2016-05-02] MEDS: DULOXETINE HCL 30 MG CAPSULE.DR PO SCH (09:44)
[2016-05-02] MEDS: LANSOPRAZOLE 30 MG TAB.RAP.DR PEG SCH (09:45)
[2016-05-02] MEDS: LEVOTHYROXINE SODIUM 0.05 MG TABLET PO SCH (09:45)
[2016-05-02] MEDS: LOSARTAN POTASSIUM 50 MG TABLET PEG SCH (09:46)
[2016-05-02] MEDS: CYANOCOBALAMIN (VITAMIN B-12) 1,000 MCG TABLET PEG SCH (09:46)
[2016-05-02] MEDS: ASPIRIN 81 MG TABLET, CHEWABLE PEG SCH (09:46)
[2016-05-02] MEDS ORDERED: SENNOSIDES/DOCUSATE 8.6-50 MG 1 EACH TABLET PEG SCH (10:00)
[2016-05-02] MEDS ORDERED: ERTAPENEM SODIUM 1 GM in NORMAL SALINE 50 ML IV SCH (16:00)
== END 2016-05-02 12:55 | DRG 689 ==
LOC: ER 17:19 → EH 04-28 04:21 → UNDOADMIN 04-28 04:21 → EH 04-28 05:07 → 3W 04-28 10:50
PROVIDERS: ADMIT Family Medicine; ATTEND Family Medicine
DX: N39.0 Urinary tract infection, site not specified (principal); L89.153 Pressure ulcer of sacral region, stage 3; E46 Unspecified protein-calorie malnutrition; Z68.1 Body mass index [BMI] 19.9 or less, adult; E87.0 Hyperosmolality and hypernatremia; B96.20 Unspecified Escherichia coli [E. coli] as the cause of diseases classified elsewhere; E86.0 Dehydration; I10 Essential (primary) hypertension; E03.9 Hypothyroidism, unspecified; R91.8 Other nonspecific abnormal finding of lung field; R00.1 Bradycardia, unspecified; E87.6 Hypokalemia; J44.9 Chronic obstructive pulmonary disease, unspecified; F03.90 Unspecified dementia, unspecified severity, without behavioral disturbance, psychotic disturbance, mood disturbance, and anxiety; E11.9 Type 2 diabetes mellitus without complications; B35.1 Tinea unguium; Z51.5 Encounter for palliative care; Z93.1 Gastrostomy status; Z66 Do not resuscitate; Z79.899 Other long term (current) drug therapy; Z88.8 Allergy status to other drugs, medicaments and biological substances; Z88.6 Allergy status to analgesic agent; Z91.040 Latex allergy status; Z79.82 Long term (current) use of aspirin
CPT/HCPCS: 36415; 71010; 71250; 80048; 80053; 81001; 82550; 82553; 82803; 82962; 83735; 83880; 84439; 84443; 84481; 84484; 85025; 87040; 87086; 87088; 87186; 93005; 93010; 99285; G8996-GN; G8997-GN; G8998-GN; J0360; J0696; J1335; J1720; J1815; J2543; J3480; J3490

== ENCOUNTER 2016-05-22 17:11 | Inpatient (IN) | payer MEDICARE, OTHER ==
[2016-05-22 17:58] LABS: APPEARANCE,URINE SLIGHTLY-CLOUDY; BILIRUBIN,URINE NEGATIVE (NEGATIVE); GLUCOSE, URINE NEGATIVE (NEGATIVE); KETONES,URINE NEGATIVE (NEGATIVE); LEUKOCYTE ESTERASE,URINE NEGATIVE (NEGATIVE); NITRITE,URINE NEGATIVE (NEGATIVE); PROTEIN,URINE 100 mg/dL (NEGATIVE); URINE SPECIFIC GRAVITY 1.012; UROBILINOGEN,URINE NEGATIVE mg/dL (<2.0)
[2016-05-22 18:07] LABS: PROTHROMBIN TIME 13.5 SEC (11.4-15.4)
[2016-05-22 18:08] LABS: ABSOLUTE EOSINOPHILS # (AUTO) 0.3 10^3/uL (0.0-0.6); ABSOLUTE LYMPHOCYTES (AUTO) 1.1 10^3/uL (0.5-4.7); ABSOLUTE MONOCYTES (AUTO) 0.3 10^3/uL (0.1-1.4); ABSOLUTE NEUT (AUTO) 4.2 10^3/uL (1.7-8.2); BASOPHILS % (AUTO) 0.4 % (0-2); EOSINOPHILS % (AUTO) 4.5 % (0-6); HEMATOCRIT 35.5 % (36.0-47.0); HEMOGLOBIN 11.5 g/dL (12.0-15.5); LYMPHOCYTES % (AUTO) 18.4 % (13-45); MEAN CORPUSCULAR HGB CONC 32.4 g/dL (32.0-36.0); MEAN CORPUSCULAR VOLUME 84 fl (80-97); MONOCYTES % (AUTO) 5.6 % (3-13); RED BLOOD COUNT 4.25 10^6/uL (3.72-5.28); RED CELL DISTRIBUTION WIDTH 16.7 % (11.5-14.0); SEGMENTED NEUTROPHILS % (AUTO) 71.1 % (42-78); WHITE BLOOD COUNT 5.9 10^3/uL (4.0-10.5)
[2016-05-22 18:19] LABS: ALANINE AMINOTRANSFERASE 24 U/L (9-52); ALBUMIN 3.3 g/dL (3.5-5.0); ALKALINE PHOSPHATASE 93 U/L (38-126); ANION GAP 13 (5-19); ASPARTATE AMINO TRANSFERASE 15 U/L (14-36); BILIRUBIN,TOTAL 0.6 mg/dL (0.2-1.3); BLOOD UREA NITROGEN 20 mg/dL (7-20); CALCIUM 9.8 mg/dL (8.4-10.2); CARBON DIOXIDE 23 mmol/L (22-30); CHLORIDE 106 mmol/L (98-107); CREATININE RESULT 0.29 mg/dL (0.52-1.25); GLUCOSE 119 mg/dL (75-110); SODIUM 141.6 mmol/L (137-145); TOTAL PROTEIN 6.6 g/dL (6.3-8.2)
[2016-05-22 18:40] LABS: VENOUS BLOOD BASE EXCESS 1.8 mmol/L; VENOUS BLOOD HCO3 26.2 mmol/L (20-32); VENOUS BLOOD PCO2 40.6 mmHg (35-63); VENOUS BLOOD PH 7.43 (7.30-7.42)
--- NOTE | 2016-05-22 19:20 | ER Document Report ---
[id number] DIFFICULTY BREATHING Mode of Arrival: Medic Information source: Patient, Emergency Med Personnel Notes: 76-year-old female presents from home in respiratory distress. EMS found patient satting 60% on room air, she was immediately placed on BiPAP. Patient admits to shortness of breath mild chest pain. Family notes patient was doing well up until triaged prior to arrival TRAVEL OUTSIDE OF THE [place] IN LAST 30 DAYS: No - HPI Onset: Just prior to arrival Onset/Duration: Sudden Quality of pain: No pain Severity: Severe Pain Level: Denies Associated symptoms: Nonproductive cough, Shortness of breath Exacerbated by: Denies Relieved by: Denies Similar symptoms previously: No Recently seen / treated by doctor: No - Related Data Allergies/Adverse Reactions: codeine [Codeine] Allergy (Verified 12/26/14 09:29) Heparin Analogues [Heparin Agents] Allergy (Verified 12/26/14 09:29) latex [Latex] Allergy (Verified 12/26/14 09:29) meperidine HCl [From Demerol] Allergy (Verified 12/26/14 09:29) Past Medical History - Social History Smoking Status: Former Smoker Cigarette use (# per day): No Chew tobacco use (# tins/day): No Smoking Education Provided: No Family History: Reviewed & Not Pertinent - Past Medical History Cardiac Medical History: Reports: Hx Hypertension Pulmonary Medical History: Reports: Hx COPD Endocrine Medical History: Reports: Hx Diabetes Mellitus Type 2 Psychiatric Medical History: Denies: Hx Depression Past Surgical History: Reports: Hx Bowel Surgery - PEG Tube insertion, Hx Cardiac Surgery, Hx Open Heart Surgery, Other - PEG tube insertion; open-heart surgery - Immunizations Hx Pneumococcal Vaccination: 04/17/10 Review of Systems - Review of Systems Notes: REVIEW OF SYSTEMS: CONSTITUTIONAL : Denies fever, chills, or sweats. Denies recent illness. EENT: Denies eye, ear, throat, or mouth pain or symptoms. Denies nasal or sinus congestion or discharge. Denies throat, tongue, or mouth swelling or difficulty swallowing. CARDIOVASCULAR: Denies chest pain. Denies palpitations or racing or irregular heart beat. Denies ankle edema. RESPIRATORY: Admits to shortness breath difficult to breathing GASTROINTESTINAL: Denies abdominal pain or distention. Denies nausea, vomiting , or diarrhea. Denies blood in vomitus, stools, or per rectum. Denies black, tarry stools. Denies constipation. GENITOURINARY: Denies difficulty urinating, painful urination, burning, frequency, blood in urine, or discharge. FEMALE GENITOURINARY: Denies vaginal bleeding, heavy or abnormal periods, irregular periods. Denies vaginal discharge or odor. MUSCULOSKELETAL: Denies back or neck pain or stiffness. Denies joint pain or swelling. SKIN: Denies rash, lesions or sores. HEMATOLOGIC : Denies easy bruising or bleeding. LYMPHATIC: Denies swollen, enlarged glands. NEUROLOGICAL: Denies confusion or altered mental status. Denies passing out or loss of consciousness. Denies dizziness or lightheadedness. Denies headache. Denies weakness or paralysis or loss of use of either side. Denies problems with gait or speech. Denies sensory loss, numbness, or tingling. Denies seizures. PSYCHIATRIC: Denies anxiety or stress. Denies depression, suicidal ideation, or homicidal ideation. ALL OTHER SYSTEMS REVIEWED AND NEGATIVE. Dictation was performed using [employer] voice recognition software PHYSICAL EXAMINATION: GENERAL: Ill-appearing female moderate distress HEAD: Atraumatic, normocephalic. EYES: Pupils equal round and reactive to light, extraocular movements intact, conjunctiva are normal. ENT: Nares patent, oropharynx clear without exudates. Moist mucous membranes. NECK: Normal range of motion, supple without lymphadenopathy LUNGS: Decreased breath sounds all throughout HEART: Tachycardic ABDOMEN: Soft, nontender, nondistended abdomen. No guarding, no rebound. No masses appreciated. Female : deferred Musculoskeletal: Normal range of motion, no pitting or edema. No cyanosis. NEUROLOGICAL: Cranial nerves grossly intact. Normal speech, normal gait. Normal sensory, motor exams PSYCH: Normal mood, normal affect. SKIN: Stage IV decubitus ulcer Physical Exam - Vital signs Vitals: Resp Pulse Ox 16 98 05/22/16 17:13 05/22/16 17:13 Course - Re-evaluation Re-evalutation: 05/23/16 00:12 Patient on arrival immediately placed on BiPAP, she was in significant respiratory distress, patient appears to be having COPD exacerbation, chest x- ray noted no obvious abnormality. Her mentation improved significantly through the visit, a PEG tube was noted Patient is admitted to hospitalist service for severe hypoxemia 05/23/16 00:19 - Vital Signs Vital signs: Temp Pulse Resp BP Pulse Ox 98.4 F 14 123/78 98 05/22/16 22:00 05/22/16 21:01 05/22/16 20:46 05/22/16 20:46 - Laboratory Result Diagrams: 05/22/16 17:42 05/22/16 17:42 Laboratory results interpreted by me: 05/22/16 05/22/16 05/22/16 17:40 17:42 17:42 Hgb 11.5 L Hct 35.5 L RDW 16.7 H VBG pH Creatinine 0.29 L Glucose 119 H Albumin 3.3 L Urine Protein 100 H 05/22/16 18:10 Hgb Hct RDW VBG pH 7.43 H Creatinine Glucose Albumin Urine Protein - Diagnostic Test Radiology reviewed: Image reviewed, Reports reviewed Critical Care Note - Critical Care Note Total time excluding time spent on procedures (mins): 45 Comments: 45 minutes of critical care time spent in direct contact evaluating and reevaluating the patient, treating symptoms, reviewing labs and studies and speaking with family and consultants excluding any procedures Discharge - Discharge Clinical Impression: Sacral decubitus ulcer, stage III, PEG (percutaneous endoscopic gastrostomy) status, Malnutrition, Severe hypoxemia HTN (hypertension) Qualifiers: Hypertension type: essential hypertension Qualified Code(s): I10 - Essential ( primary) hypertension Respiratory failure Qualifiers: Chronicity: acute Respiratory failure complication: hypoxia Qualified Code(s): J96.01 - Acute respiratory failure with hypoxia Disposition: ADMITTED INPATIENT Admitting Provider: Hospitalist Unit Admitted: [facility]
--- NOTE | 2016-05-22 19:25 | EKG REPORT ---
SEVERITY:- ABNORMAL ECG - SINUS RHYTHM PROBABLE LVH WITH SECONDARY REPOL ABNRM : Confirmed by: Torie Chavez 22-May-2016 19:24:32
[2016-05-22] MEDS ORDERED: CEFTRIAXONE 1 GM/D5W RTU 50 ML IV ONE (19:32)
[2016-05-22] MEDS ORDERED: GLUCAGON,HUMAN RECOMB 1 MG INJ IM PRN (20:09)
[2016-05-22] MEDS ORDERED: DEXTROSE 50%-WATER 25 GM/50 ML DISP.SYRIN IV PRN ×2 (20:09)
[2016-05-22] MEDS ORDERED: DEXTROSE 40% GEL 15 GM TUBE PO PRN ×2 (20:09)
[2016-05-22] MEDS ORDERED: INSULIN LISPRO 100 UNIT/ML 3 ML VIAL SUBCUT PRN (20:09)
[2016-05-22] MEDS ORDERED: ONDANSETRON HCL INJ/PF 4 MG/2 ML SDV IV PRN (20:09)
[2016-05-22] MEDS ORDERED: POLYETHYLENE GLYCOL 3350 POWDER 17 GM/1 PACKET PO ONE (20:30)
[2016-05-22] MEDS ORDERED: (PENDING PHARMACY ID) (Sennosides [Senna] 8.6 MG) PEG SCH (22:00)
[2016-05-23] MEDS: IPRATROPIUM/ALBUTEROL 0.5-2.5 MG/3 ML AMPUL NEB SCH ×3 (00:03→16:03)
[2016-05-23] MEDS: METOCLOPRAMIDE HCL ORAL SOLN 10 MG/10 ML UDCUP PEG SCH ×4 (00:39→22:25)
[2016-05-23] MEDS: HYDRALAZINE HCL 25 MG TABLET PO SCH ×4 (00:40→22:25)
[2016-05-23] MEDS: LOSARTAN POTASSIUM 50 MG TABLET PEG SCH ×4 (00:41→22:10)
[2016-05-23] MEDS: NORMAL SALINE 1000 ML 1,000 ML IV SCH ×2 (00:48→13:37)
[2016-05-23] MEDS: HEPARIN SOD (PORCINE) 5,000 UNIT/ML 1 ML SYRINGE SUBCUT SCH ×4 (00:49→22:25)
--- NOTE | 2016-05-23 06:07 | PDOC H&P ---
History of Present Illness Admission Date/PCP: 05/22/16 20:09 Patient complains of: Shortness of breath History of Present Illness: MENDEL HEADLEY is a 76 year old female with a past medical history of nonverbal, dementia, recurrent aspiration and PEG tube who is at home and noted by family to be in respiratory distress shortly after taking something by mouth. EMS was called finding her with a blood pressure of 213/155 and a pulse of 166 setting only 60% on 2 L of home O2. She is placed on transdermal nitroglycerin and BiPAP brought to the emergency room for evaluation with biophysical and clinical improvement. Cardiac labs are pending she's found to have a stage IV sacral decubiti with malodorous discharge and referred the hospitalist for admission. Past Medical History Cardiac Medical History: Reports: Hypertension Pulmonary Medical History: Reports: Chronic Obstructive Pulmonary Disease (COPD) Endocrine Medical History: Reports: Diabetes Mellitus Type 2 Psychiatric Medical History: Denies: Depression Past Surgical History Past Surgical History: Reports: Other - PEG tube insertion; open-heart surgery Social History Smoking Status: Former Smoker Frequency of Alcohol Use: None Hx Recreational Drug Use: No Hx Prescription Drug Abuse: No - Advance Directive Resuscitation Status: Do Not Resuscitate Family History Family History: Other - Unobtainable Parental Family History Reviewed: No - unobtainable Children Family History Reviewed: No Sibling(s) Family History Reviewed.: No Medication/Allergy Home Medications: Aspirin 81 mg PEG DAILY 12/26/14 Cyanocobalamin (Vitamin B-12) [B-12] 1,000 mcg PEG DAILY 12/26/14 Esomeprazole Mag Trihydrate [Nexium] 40 mg PEG DAILY 12/26/14 Furosemide [Lasix 20 mg Tablet] 10 mg PEG DAILY 12/26/14 Metformin HCl [Glucophage] 1,000 mg PEG Q12 12/26/14 Rosuvastatin Calcium [Crestor] 40 mg PEG DAILY #30 12/30/14 Sennosides [Senna] 8.6 mg PEG QHS #30 12/30/14 Insulin Glargine,Hum.rec.anlog [Lantus Solostar] 10 unit SQ QHS 04/28/16 Metoclopramide HCl 5 mg PEG Q8 04/28/16 Polyethylene Glycol 3350 [Polyethylene Glycol] 1 cap PEG DAILY 04/28/16 Duloxetine HCl [Cymbalta] 60 mg PO DAILY #1 capsule. 05/02/16 Hydralazine HCl [Apresoline 25 mg Tablet] 25 mg PO Q8 tablet 05/02/16 Levothyroxine Sodium [Synthroid 0.05 mg Tablet] 0.125 mg PO DAILY tablet Losartan Potassium [Cozaar 50 mg Tablet] 50 mg PEG Q12 tablet 05/02/16 Morphine Sulfate [Morphine 10 mg/5 ml Oral Soln Udcup] 10 mg PO Q4HP PRN #20 udc 05/02/16 Sulfamethoxazole/Trimethoprim [Bactrim Ds Tablet] 1 each PO BID #16 tablet 05/02 Allergies/Adverse Reactions: codeine [Codeine] Allergy (Verified 12/26/14 09:29) Heparin Analogues [Heparin Agents] Allergy (Verified 12/26/14 09:29) latex [Latex] Allergy (Verified 12/26/14 09:29) meperidine HCl [From Demerol] Allergy (Verified 12/26/14 09:29) Review of Systems ROS unobtainable: Due to mental status - Unobtainable Psychiatric: ABSENT: anxiety, depression, homidical ideation, suicidal ideation Allergic/Immunologic: ABSENT: as per HPI, seasonal rhinorrhea, other Physical Exam Vital Signs: Temp Pulse Resp BP Pulse Ox 98.2 F 72 20 129/52 H 99 05/23/16 04:08 05/23/16 04:08 05/23/16 04:08 05/23/16 04:08 05/23/16 04:08 Intake & Output 05/21/16 05/22/16 05/23/16 11:59 11:59 11:59 Intake Total 60 Output Total 200 Balance -140 Weight 44.6 kg General appearance: PRESENT: disheveled, mild distress, thin Head exam: PRESENT: atraumatic, normocephalic Eye exam: PRESENT: conjunctiva pink, EOMI, PERRLA. ABSENT: scleral icterus Ear exam: PRESENT: normal external ear exam Mouth exam: PRESENT: dry mucosa, tongue midline Neck exam: ABSENT: carotid bruit, JVD, lymphadenopathy, thyromegaly Respiratory exam: PRESENT: crackles, symmetrical, tachypnea, unlabored. ABSENT : accessory muscle use, chest wall tenderness, prolonged expiratory phas, rhonchi, stridor Cardiovascular exam: PRESENT: gallop, RRR, +S1, +S2, other - Systolic ejection murmur Pulses: PRESENT: normal dorsalis pedis pul Vascular exam: PRESENT: normal capillary refill GI/Abdominal exam: PRESENT: normal bowel sounds, soft. ABSENT: distended, guarding, mass, organolmegaly, rebound, tenderness Rectal exam: PRESENT: deferred Extremities exam: PRESENT: other - 4 x 4 stage IV sacral decubitus sanguinous malodorous exudate Musculoskeletal exam: PRESENT: other - 4 x 4 stage IV sacral decubiti with exudate Neurological exam: PRESENT: alert, awake, CN II-XII grossly intact Psychiatric exam: PRESENT: flat affect Skin exam: PRESENT: other - 4 x 4 stage IV sacral decubiti with exudate Results Laboratory Results: 05/22/16 22:15 Lactic Acid 1.1 Impressions: Chest X-Ray 05/22/16 17:14 IMPRESSION: NO ACUTE RADIOGRAPHIC FINDING IN THE CHEST. Assessment & Plan - Diagnosis (1) Aspiration pneumonia Is this a current diagnosis for this admission?: YesPlan: According to the emergency room personnel symptoms began shortly after aspirating on food, she is placed on empiric antibiotics, albuterol and Atrovent and nothing by mouth, and supportive care (2) Hypertensive emergency Is this a current diagnosis for this admission?: YesPlan: EMS documents blood pressure of 213/155 and tachycardia of 116. It is not entirely clear if shortness of breath began secondary to diastolic heart failure exacerbation and her history is unknown that said I given her systolic ejection murmur and concern for aortic stenosis I will add IV hydralazine and IV Vasotec for optimization of blood pressure, and gentle diuresis. Cardiac labs still pending (3) Sacral decubitus ulcer, stage IV Is this a current diagnosis for this admission?: YesPlan: Supportive care wound culture follow-up CBC and surgical consult - Time Time Spent: 50 to 70 Minutes
[2016-05-23 07:03] LABS: ANION GAP 8 (5-19); BLOOD UREA NITROGEN 20 mg/dL (7-20); CALCIUM 8.7 mg/dL (8.4-10.2); CARBON DIOXIDE 28 mmol/L (22-30); CHLORIDE 106 mmol/L (98-107); CREATINE KINASE 22 U/L (30-135); GLUCOSE 94 mg/dL (75-110); POTASSIUM 3.9 mmol/L (3.6-5.0); SODIUM 142.1 mmol/L (137-145)
[2016-05-23 07:16] LABS: CREATINE KINASE MB 1.66 ng/mL (<4.55); TROPONIN I 0.023 ng/mL
[2016-05-23] MEDS ORDERED: FUROSEMIDE INJ/PF 20 MG/2 ML SDV IV ONE (08:29)
[2016-05-23] MEDS ORDERED: INFLUENZA ADLT QUAD (36MOS+) 2016-17 VAC 0.5 ML SYR IM PRN (09:02)
--- NOTE | 2016-05-23 09:26 | Physician Advisory Note ---
Physician Advisor ProgressNote .: Pursuant to the plan for [facility], I have reviewed the medical record for this patient. Physician Advisor Statement: Excellent documentation of pt's initial unstable BP/HR/O2 level despite usual O2, need for BiPAP immediately, suspected aspiration PNA, stage 4 sacral decub. Possible documentation opportunities if attending agrees: 1. "Acute on Chronic Hypoxemic Respiratory Failure, with labored breathing & diaphoresis initially in ED with her tachycardia, tachypnea & hypoxemia that required increased O2 administration & BIPAP" 2. "suspected aspiration PNA involving the ___ lobe(s)" 3. R.e. possible "hypertensive emergency" - please document in followup notes whether this dx is ruled in, with associated acute diastolic/systolic CHF, or actually turns out to be "hypertensive urgency". 4. "underweight with protein-calorie malnutrition [state mild, mod, or severe] with BMI 18.0, Cr 0.29, alb 3.3, , ____[?wt loss, ?appetite loss, ]" [if possible, give specifics on intake, wt loss, loss of SQ fat & muscle mass, diminished hand linen supply load builder strength, & clinical importance such as (A) nutritional assessment ordered, (B) modified diet or supplements ordered, (C) additional labs ordered, (D) prolonged wound healing time, (E) delayed infxn clearance] - - - Auditors are strict about the dx of malnutrition - has to be explicitly spelled out. As always, if concerned about any unstable VS or abnormal labs, please comment on them & note what doing about them, & please document each day the potential clinical problems you are concerned could occur if pt not kept in hospital for tx at this time. Discussion: 76yo female w/ chronic co-morbidities including COPD, chr resp failure requiring 2L O2 at baseline, HTN, DM type 2, recurrent aspiration, dementia, nonverbal status, PEG tube due to dysphagia, stage 4 sacral decub ulcer - presented 2/5 PM to ED w/acute resp distress after taking something po, with BP 213/155, HR 166, O2 sat 60% on her usual 2L O2 for EMS. Although by the time of H&P, her breathing was "unlabored" (& her VS were tremendously improved , with HR 72, RR20, BP 129/52), she had come in with diaphoresis, labored breathing, coarse rhonchi, tachycardia, tachypnea, SOB per initial ED nsg assessment. (+) WBC 5.9, Hgb 11.5, BUN 20, Cr 0.29, alb 3.3, lactate 2.1, BNP 1500, trop I 0.[address] documented that "her mentation improved significantly through the visit", which indicates that her mentation was initially acutely worse than baseline but improved with improving respiratory status. ED gave Bipap, O2, Rocephin IV , & ordered CT chest. Attending ordered NS x2L (at 20:14), Duonebs q8h, I/Os, aspiratin & falls prec.s , tele monitoring, surgical consult, wound cx, specialty mattress, O2 2L. Status: Elderly female with underlying COPD w/chronic resp failure, DM type 2, recurrent aspiration, malnutrition, presented with acute severe worsening after apparent aspiration episode, also with HTNive urgency vs HTN-marissa emergency, possibility of acute CHF. With prompt tx, repeat lactate level improved, vital signs improved. Attending ordering now dose of IV Lasix this AM. This patient has already spent 1 MN in hospital care. If attending believes & documents that continued tx in inpatient hospital setting for at least a 2nd MN = medically reasonable & necessary to protect pt's health, safety, & medical condition in this case, & reasons, appropriate to change to Inpatient status. Thanks for your help with documentation accuracy/specificity improvement! Isabelle Barnard MD [facility] Physician Advisor, Fellow of Hospital Medicine
[2016-05-23 09:36] LABS: ABSOLUTE EOSINOPHILS # (AUTO) 0.2 10^3/uL (0.0-0.6); ABSOLUTE LYMPHOCYTES (AUTO) 1.7 10^3/uL (0.5-4.7); ABSOLUTE MONOCYTES (AUTO) 0.5 10^3/uL (0.1-1.4); ABSOLUTE NEUT (AUTO) 5.5 10^3/uL (1.7-8.2); BASOPHILS % (AUTO) 0.3 % (0-2); EOSINOPHILS % (AUTO) 2.1 % (0-6); HEMATOCRIT 35.3 % (36.0-47.0); HEMOGLOBIN 11.4 g/dL (12.0-15.5); HGB HCT DIFFERENCE -1.1; LYMPHOCYTES % (AUTO) 22.1 % (13-45); MEAN CORPUSCULAR HGB CONC 32.4 g/dL (32.0-36.0); MEAN CORPUSCULAR VOLUME 83 fl (80-97); RED BLOOD COUNT 4.24 10^6/uL (3.72-5.28); RED CELL DISTRIBUTION WIDTH 17.1 % (11.5-14.0); SEGMENTED NEUTROPHILS % (AUTO) 69.5 % (42-78); WHITE BLOOD COUNT 7.8 10^3/uL (4.0-10.5)
--- NOTE | 2016-05-23 09:50 | PDOC CONSULTATION ---
Consultation Consult Date: 05/23/16 Consult reason:: Stage IV decubitus History of Present Illness Admission Date/PCP: 05/22/16 20:09 Past Medical History Cardiac Medical History: Reports: Hypertension Pulmonary Medical History: Reports: Chronic Obstructive Pulmonary Disease (COPD) Endocrine Medical History: Reports: Diabetes Mellitus Type 2 Psychiatric Medical History: Denies: Depression Past Surgical History Past Surgical History: Reports: Other - PEG tube insertion; open-heart surgery Social History Smoking Status: Former Smoker Frequency of Alcohol Use: None Hx Recreational Drug Use: No Hx Prescription Drug Abuse: No - Advance Directive Resuscitation Status: Do Not Resuscitate Family History Family History: Other - Unobtainable Parental Family History Reviewed: Yes Children Family History Reviewed: Yes Sibling(s) Family History Reviewed.: Yes Medication/Allergy Home Medications: Aspirin 81 mg PEG DAILY 12/26/14 Cyanocobalamin (Vitamin B-12) [B-12] 1,000 mcg PEG DAILY 12/26/14 Esomeprazole Mag Trihydrate [Nexium] 40 mg PEG DAILY 12/26/14 Furosemide [Lasix 20 mg Tablet] 10 mg PEG DAILY 12/26/14 Metformin HCl [Glucophage] 1,000 mg PEG Q12 12/26/14 Rosuvastatin Calcium [Crestor] 40 mg PEG DAILY #30 12/30/14 Sennosides [Senna] 8.6 mg PEG QHS #30 12/30/14 Insulin Glargine,Hum.rec.anlog [Lantus Solostar] 10 unit SQ QHS 04/28/16 Metoclopramide HCl 5 mg PEG Q8 04/28/16 Polyethylene Glycol 3350 [Polyethylene Glycol] 1 cap PEG DAILY 04/28/16 Duloxetine HCl [Cymbalta] 60 mg PO DAILY #1 capsule. 05/02/16 Hydralazine HCl [Apresoline 25 mg Tablet] 25 mg PO Q8 tablet 05/02/16 Levothyroxine Sodium [Synthroid 0.05 mg Tablet] 0.125 mg PO DAILY tablet Losartan Potassium [Cozaar 50 mg Tablet] 50 mg PEG Q12 tablet 05/02/16 Morphine Sulfate [Morphine 10 mg/5 ml Oral Soln Udcup] 10 mg PO Q4HP PRN #20 udc 05/02/16 Sulfamethoxazole/Trimethoprim [Bactrim Ds Tablet] 1 each PO BID #16 tablet 05/02 Allergies/Adverse Reactions: codeine [Codeine] Allergy (Verified 12/26/14 09:29) Heparin Analogues [Heparin Agents] Allergy (Verified 12/26/14 09:29) latex [Latex] Allergy (Verified 12/26/14 09:29) meperidine HCl [From Demerol] Allergy (Verified 12/26/14 09:29) Physical Exam Vital Signs: Temp Pulse Resp BP Pulse Ox 98.3 F 78 20 180/65 H 100 05/23/16 07:12 05/23/16 08:37 05/23/16 08:37 05/23/16 07:12 05/23/16 08:37 Intake & Output 05/22/16 05/23/16 05/24/16 06:59 06:59 06:59 Intake Total 732 Output Total 300 Balance 432 Weight 44.6 kg 44.6 kg General appearance: PRESENT: hard of hearing Torso Front/Back Image: 1 - Patient rolled the left lateral decubitus position. She has a stage IV chronic ulcer of the sacrum centrally tracking down to the sacrococcygeal area. Cavity is clean and granulating; intact perimeter skin macerated Results Laboratory Results: 05/23/16 09:26 05/23/16 06:37 05/22/16 05/23/16 05/23/16 22:15 06:37 06:37 WBC Cancelled RBC Cancelled Hgb Cancelled Hct Cancelled MCV Cancelled MCH Cancelled MCHC Cancelled RDW Cancelled Plt Count Cancelled Seg Neutrophils % Cancelled Lymphocytes % Cancelled Monocytes % Cancelled Eosinophils % Cancelled Basophils % Cancelled Absolute Neutrophils Cancelled Absolute Lymphocytes Cancelled Absolute Monocytes Cancelled Absolute Eosinophils Cancelled Absolute Basophils Cancelled Sodium 142.1 Potassium 3.9 Chloride 106 Carbon Dioxide 28 Anion Gap 8 BUN 20 Creatinine 0.30 L Est GFR ( Amer) > 60 Est GFR (Non-Af Amer) > 60 Glucose 94 Lactic Acid 1.1 Calcium 8.7 05/23/16 05/23/16 08:22 09:26 WBC Cancelled 7.8 RBC Cancelled 4.24 Hgb Cancelled 11.4 L Hct Cancelled 35.3 L MCV Cancelled 83 MCH Cancelled 27.0 MCHC Cancelled 32.4 RDW Cancelled 17.1 H Plt Count Cancelled 267 Seg Neutrophils % Cancelled 69.5 Lymphocytes % Cancelled 22.1 Monocytes % Cancelled 6.0 Eosinophils % Cancelled 2.1 Basophils % Cancelled 0.3 Absolute Neutrophils Cancelled 5.5 Absolute Lymphocytes Cancelled 1.7 Absolute Monocytes Cancelled 0.5 Absolute Eosinophils Cancelled 0.2 Absolute Basophils Cancelled 0.0 Sodium Potassium Chloride Carbon Dioxide Anion Gap BUN Creatinine Est GFR ( Amer) Est GFR (Non-Af Amer) Glucose Lactic Acid Calcium 05/23/16 05/23/16 06:37 06:37 Creatine Kinase 22 L CK-MB (CK-2) 1.66 Troponin I 0.023 NT-Pro-B Natriuret Pep 1500 H Impressions: Chest X-Ray 05/22/16 17:14 IMPRESSION: NO ACUTE RADIOGRAPHIC FINDING IN THE CHEST. Assessment & Plan - Diagnosis (1) Sacral decubitus ulcer, stage IV Is this a current diagnosis for this admission?: YesPlan: 1. Patient has a chronic stage IV decubitus ulcer. It is clean and not in need of operative debridement. 2. Management strategies include pressure offloading, patient rotation off of the supine position, and dressing changes which I have ordered. 3. I reviewed the above with the nursing staff. 4. Please reconsult surgery if further input required - Time Time Spent: 30 to 50 Minutes
[2016-05-23] MEDS ORDERED: LEVOTHYROXINE SODIUM 0.05 MG TABLET PO SCH (10:00)
[2016-05-23] MEDS: DULOXETINE HCL 30 MG CAPSULE.DR PO SCH (11:19)
[2016-05-23] MEDS: POLYETHYLENE GLYCOL 3350 POWDER 17 GM/1 PACKET PO SCH (11:21)
[2016-05-23] MEDS: ASPIRIN 81 MG TABLET, CHEWABLE PEG SCH (11:23)
[2016-05-23] MEDS: LANSOPRAZOLE 30 MG TAB.RAP.DR PO SCH (11:23)
[2016-05-23] MEDS: CYANOCOBALAMIN (VITAMIN B-12) 1,000 MCG TABLET PEG SCH (11:24)
[2016-05-23] MEDS: IMIPENEM/CILASTATIN SODIUM 1,000 MG in NORMAL SALINE 250 ML IV SCH ×2 (15:34→22:24)
[2016-05-23] MEDS ORDERED: TRAMADOL HCL 50 MG TABLET PEG PRN (15:54)
[2016-05-23] MEDS: INSULIN GLARGINE,HUM.REC.ANLOG 300 UNIT/3 ML INSULN.PEN SUBCUT SCH (22:25)
[2016-05-23] MEDS: AMLODIPINE BESYLATE 10 MG TABLET PEG SCH (22:25)
[2016-05-23] MEDS: ACETAMINOPHEN 325 MG TABLET PO PRN (23:59)
[2016-05-24] MEDS: IPRATROPIUM/ALBUTEROL 0.5-2.5 MG/3 ML AMPUL NEB SCH ×4 (00:18→23:54)
[2016-05-24] MEDS: IMIPENEM/CILASTATIN SODIUM 1,000 MG in NORMAL SALINE 250 ML IV SCH ×4 (02:47→21:00)
--- NOTE | 2016-05-24 04:01 | PDOC PROGRESS REPORT ---
Subjective Progress Note for:: 05/23/16 Subjective:: Patient is unable to give much in the way of review of systems. She intermittently participates in conversation. Her son is present at bedside. He reports being unaware that feeding his mother despite her inability to swallow will lead to her aspiration pneumonia. Physical Exam Vital Signs: Temp Pulse Resp BP Pulse Ox 98.3 F 77 18 180/65 H 96 05/23/16 07:12 05/23/16 07:12 05/23/16 07:12 05/23/16 07:12 05/23/16 07:12 Intake & Output 05/22/16 05/23/16 05/24/16 06:59 06:59 06:59 Intake Total 60 Output Total 300 Balance -240 Weight 44.6 kg Exam: General: Awake alert and occasionally answers answers questions, no acute respiratory distress HEENT: PERRL, EOMI, oropharynx is dry, pink, no scleral icterus, no conjunctival injection Neck: No JVD, trachea midline Chest: Rhonchi right middle lobe CV: Regular rate and rhythm, normal S1 and S2, no rub or gallop; 4/6 ALDO RUSB, 2 /6 SM apex Abdomen: Soft, nontender to palpation, nondistended, diminished bowel sounds; no rebound, rigidity, or guarding, PEG in place Extremities: No cyanosis, clubbing or edema Results Laboratory Results: 05/23/16 06:37 05/22/16 05/23/16 05/23/16 22:15 06:37 06:37 WBC Cancelled RBC Cancelled Hgb Cancelled Hct Cancelled MCV Cancelled MCH Cancelled MCHC Cancelled RDW Cancelled Plt Count Cancelled Seg Neutrophils % Cancelled Lymphocytes % Cancelled Monocytes % Cancelled Eosinophils % Cancelled Basophils % Cancelled Absolute Neutrophils Cancelled Absolute Lymphocytes Cancelled Absolute Monocytes Cancelled Absolute Eosinophils Cancelled Absolute Basophils Cancelled Sodium 142.1 Potassium 3.9 Chloride 106 Carbon Dioxide 28 Anion Gap 8 BUN 20 Creatinine 0.30 L Est GFR ( Amer) > 60 Est GFR (Non-Af Amer) > 60 Glucose 94 Lactic Acid 1.1 Calcium 8.7 05/23/16 05/23/16 06:37 06:37 Creatine Kinase 22 L CK-MB (CK-2) 1.66 Troponin I 0.023 NT-Pro-B Natriuret Pep 1500 H Impressions: Chest X-Ray 05/22/16 17:14 IMPRESSION: NO ACUTE RADIOGRAPHIC FINDING IN THE CHEST. Assessment & Plan - Diagnosis (1) UTI due to extended-spectrum beta lactamase (ESBL) producing Escherichia coli Is this a current diagnosis for this admission?: YesPlan: Patient currently growing gram-negative rods patient has history of ESBL Escherichia coli. Will place PICC line (2) Acute hypoxemic respiratory failure Is this a current diagnosis for this admission?: YesPlan: Continue oxygen as needed (3) Aspiration pneumonia Qualifiers: Laterality: right Lung location: unspecified part of lung Is this a current diagnosis for this admission?: YesPlan: Patient currently on imipenem, aggressive pulmonary toileting. (4) Hypertensive emergency Is this a current diagnosis for this admission?: YesPlan: This resolved. (5) Malnutrition Is this a current diagnosis for this admission?: YesPlan: We'll consult dietary. Patient has apparently been trying to supplement oral intake with feeds. Patient however is minutes was taken by mouth. (6) Sacral decubitus ulcer, stage IV Is this a current diagnosis for this admission?: YesPlan: Patient's wound is currently growing gram-negative rods with concern for previous ESBL Escherichia coli. Appreciate surgery input. Continue wet-to-dry. (7) Hypothyroid Qualifiers: Hypothyroidism type: unspecified Qualified Code(s): E03.9 - Hypothyroidism, unspecified Is this a current diagnosis for this admission?: YesPlan: Continue Synthroid (8) Do not resuscitate Is this a current diagnosis for this admission?: Yes (9) PEG (percutaneous endoscopic gastrostomy) status Is this a current diagnosis for this admission?: Yes - Time Time Spent with patient: 25-34 minutes Medications reviewed and adjusted accordingly: Yes
[2016-05-24] MEDS: HEPARIN SOD (PORCINE) 5,000 UNIT/ML 1 ML SYRINGE SUBCUT SCH ×2 (05:34→15:49)
[2016-05-24] MEDS: METOCLOPRAMIDE HCL ORAL SOLN 10 MG/10 ML UDCUP PEG SCH ×3 (05:34→23:07)
[2016-05-24] MEDS: HYDRALAZINE HCL 25 MG TABLET PO SCH ×3 (05:34→23:07)
[2016-05-24] MEDS: DULOXETINE HCL 30 MG CAPSULE.DR PO SCH (09:29)
[2016-05-24] MEDS: LEVOTHYROXINE SODIUM 0.025 MG TABLET PO SCH (09:29)
[2016-05-24] MEDS: LANSOPRAZOLE 30 MG TAB.RAP.DR PO SCH (09:29)
[2016-05-24] MEDS: CYANOCOBALAMIN (VITAMIN B-12) 1,000 MCG TABLET PEG SCH (09:30)
[2016-05-24] MEDS: CHOLECALCIFEROL (D3) 1,000 UNIT TABLET PEG SCH (09:30)
[2016-05-24] MEDS: LEVOTHYROXINE SODIUM 0.1 MG TABLET PO SCH (09:30)
[2016-05-24] MEDS: LOSARTAN POTASSIUM 50 MG TABLET PEG SCH ×3 (09:30→23:09)
[2016-05-24] MEDS: ACETAMINOPHEN 325 MG TABLET PO PRN (09:32)
[2016-05-24] MEDS: ASPIRIN 81 MG TABLET, CHEWABLE PEG SCH (09:33)
[2016-05-24] MEDS ORDERED: (PENDING PHARMACY ID) (Rosuvastatin Calcium [Crestor] 40 MG) PEG SCH (10:00)
[2016-05-24] MEDS ORDERED: (PENDING PHARMACY ID) (Acetaminophen [Tylenol Extra Strength 500 Mg Tablet] 500 MG) PEG SCH (10:00)
[2016-05-24] MEDS: ACETAMINOPHEN SOLN 325 MG/10.15 ML UDCUP PEG SCH (11:31)
[2016-05-24] MEDS: POLYETHYLENE GLYCOL 3350 POWDER 17 GM/1 PACKET PO SCH (11:31)
--- NOTE | 2016-05-24 13:48 | PDOC PROGRESS REPORT ---
Subjective Progress Note for:: 05/24/16 Subjective:: No new issues reported. Review of systems not obtained secondary to dementia. Physical Exam Vital Signs: Temp Pulse Resp BP Pulse Ox 97.4 F 84 18 152/75 H 99 05/24/16 08:26 05/24/16 08:26 05/24/16 08:26 05/24/16 08:26 05/24/16 08:26 Intake & Output 05/23/16 05/24/16 05/25/16 06:59 06:59 06:59 Intake Total 2516 Output Total 1950 Balance 566 Weight 46.3 kg GENERAL: No acute distress HEENT: Conjunctiva clear, nonicteric, moist mucous membranes, no JVD, midline trachea RESPIRATORY: Clear to auscultation bilaterally, no wheezes, no rhonchi CARDIAC: Regular rate and rhythm, systolic murmur ABDOMEN: Soft, nondistended, nontender, positive bowel sounds, no rebound, no guarding. PEG tube in place. EXTREMETIES: No edema, cyanosis, clubbing NEUROLOGIC: Alert, demented, CN's grossly intact, no focal deficits SKIN: Stage IV sacral wound Results Impressions: Chest X-Ray 05/22/16 17:14 IMPRESSION: NO ACUTE RADIOGRAPHIC FINDING IN THE CHEST. Guidance Fluoroscopy 05/24/16 00:00 IMPRESSION: SUCCESSFUL PLACEMENT OF A 5 FR DUAL LUMEN 34 CM PICC IN THE right basilic VEIN. Interventional Vascular Procedure 05/24/16 00:00 IMPRESSION: SUCCESSFUL PLACEMENT OF A 5 FR DUAL LUMEN 34 CM PICC IN THE right basilic VEIN. PICC Line Insertion 05/24/16 00:00 IMPRESSION: SUCCESSFUL PLACEMENT OF A 5 FR DUAL LUMEN 34 CM PICC IN THE right basilic VEIN. Assessment & Plan - Diagnosis (1) Aspiration pneumonia Qualifiers: Laterality: right Lung location: unspecified part of lung Is this a current diagnosis for this admission?: YesPlan: PICC line placed. Will discharge patient home on IV ertapenem 10 days. (2) UTI due to extended-spectrum beta lactamase (ESBL) producing Escherichia coli Is this a current diagnosis for this admission?: Yes (3) Acute hypoxemic respiratory failure Is this a current diagnosis for this admission?: YesPlan: Continue oxygen supplementation. (4) Hypertensive emergency Is this a current diagnosis for this admission?: Yes (5) Malnutrition Is this a current diagnosis for this admission?: YesPlan: Continue tube feeding via gastrostomy tube. (6) PEG (percutaneous endoscopic gastrostomy) status Is this a current diagnosis for this admission?: Yes (7) Sacral decubitus ulcer, stage IV Is this a current diagnosis for this admission?: YesPlan: Continue local wound care. She will need to follow-up with wound clinic. (8) Hypothyroid Qualifiers: Hypothyroidism type: unspecified Qualified Code(s): E03.9 - Hypothyroidism, unspecified Is this a current diagnosis for this admission?: Yes (9) Dementia Is this a current diagnosis for this admission?: YesPlan: Patient is cared for at home with the assistance of her , home health, and personal care aides. She has durable medical equipment in place already. (10) Do not resuscitate Is this a current diagnosis for this admission?: Yes - Time Time Spent with patient: 35 or more minutes Anticipated discharge: Home with Homehealth Within: within 24 hours
[2016-05-24] MEDS ORDERED: NORMAL SALINE 10 ML SDV (AFTER EACH USE) IV PRN (13:53)
--- NOTE | 2016-05-24 14:43 | Palliative Consultation Report ---
Consultation From:: CLAUDIA PARIS Consult Reason: Palliaitve care consult - HPI HPI: Appreciate consult with this 76 year old woman who is admitted with aspiration pneumonia and stage IV decubitus on sacral area. Patient lives at home with her /family and is followed by home health. She is nonverbal with dementia per record. She has PEG tube for feedings, but it appears that she also takes food by mouth. According to reports, she had episode of hypoxia and respiratory distress at home after ingesting something solid. She is now on IV antibiotics and has stabilized. Call was placed to patients yesterday by RN liason to ask him what would be a good time to meet with me. However, he did not return her call. I came to see patient this afternoon but no one is with her and patient is sleeping peacefully. She appears comfortable and in no respiratory distress at present. From details in hospital notes, plans are to send patient home with PICC line for antibiotics and home health to continue to follow. I will be happy to follow the patient at home if her PCP will refer to Palliative Care. Her may need some support as she continues to advance in her dementia and disease course. I did leave a brochure and card with my cell number in her room for her family. Onset: Just prior to arrival Onset/Duration: Sudden Associated Symptoms: Shortness of breath - Unable to speak with patient, no family at bedside Past Medical History(Consults) - General Information Source: [facility] Records Home Medications: Aspirin 81 mg PEG DAILY 12/26/14 Cyanocobalamin (Vitamin B-12) [B-12] 1,000 mcg PEG DAILY 12/26/14 Esomeprazole Mag Trihydrate [Nexium] 40 mg PEG DAILY 12/26/14 Furosemide [Lasix 20 mg Tablet] 10 mg PEG DAILY 12/26/14 Metformin HCl [Glucophage] 1,000 mg PEG Q12 12/26/14 Rosuvastatin Calcium [Crestor] 40 mg PEG DAILY #30 12/30/14 Sennosides [Senna] 8.6 mg PEG QHS #30 12/30/14 Insulin Glargine,Hum.rec.anlog [Lantus Solostar] 10 unit SQ QHS 04/28/16 Metoclopramide HCl 5 mg PEG Q8 04/28/16 Polyethylene Glycol 3350 [Polyethylene Glycol] 1 cap PEG DAILY 04/28/16 Acetaminophen [Tylenol Extra Strength 500 mg Tablet] 500 mg PEG DAILY 05/23/16 Amlodipine Besylate [Norvasc 10 mg Tablet] 10 mg PO QHS 05/23/16 Cholecalciferol (Vitamin D3) [Vitamin D3 1000 Unit Tablet] 1,000 unit PO DAILY 05/23/16 Levothyroxine Sodium [Synthroid 0.05 mg Tablet] 100 mcg PEG DAILY 05/23/16 Losartan Potassium [Cozaar] 100 mg PEG DAILY 05/23/16 Tramadol HCl [Ultram] 50 mg PO DAILYP PRN 05/23/16 Allergies/Adverse Reactions: codeine [Codeine] Allergy (Verified 12/26/14 09:29) Heparin Analogues [Heparin Agents] Allergy (Verified 12/26/14 09:29) latex [Latex] Allergy (Verified 12/26/14 09:29) meperidine HCl [From Demerol] Allergy (Verified 12/26/14 09:29) - Social History Lives with: Spouse/Significant other Family History: Other - Unobtainable Parental Family History Reviewed: No Children Family History Reviewed: No Sibling(s) Family History Reviewed.: No Smoking Status: Former Smoker Frequency of Alcohol Use: None Hx Recreational Drug Use: No Hx Prescription Drug Abuse: No - Past Medical History Cardiac Medical History: Reports: Hx Hypertension Pulmonary Medical History: Reports: Hx COPD Endocrine Medical History: Reports: Hx Diabetes Mellitus Type 2 Musculoskeltal Medical History: Reports Hx Muscle Weakness Psychiatric Medical History: Reports: Hx Dementia Denies: Hx Depression - Surgical History Past Surgical History: Reports: Hx Bowel Surgery - PEG Tube insertion, Hx Cardiac Surgery, Hx Open Heart Surgery, Other - PEG tube insertion; open-heart surgery Review of systems ROS unobtainable: due to mental statu Ojective:Exam Vital Signs: Temp Pulse Resp BP Pulse Ox 97.4 F 84 18 152/75 H 99 05/24/16 08:26 05/24/16 08:26 05/24/16 08:26 05/24/16 08:26 05/24/16 08:26 Intake & Output 05/23/16 05/24/16 05/25/16 06:59 06:59 06:59 Intake Total 2516 Output Total 1950 Balance 566 Weight 46.3 kg - General General Appearance: Sleeping/easily aroused In distress: None - Respiratory Respiratory Status: No respiratory distress - Cardiovascular Rhythm: Regular Pulses: Normal: Radial Plan and Recommendation Plan and Recommendation: As above, Palliative care brochure left in patients room with my cell number. Will try to talk with spouse per telephone to offer support. Will be happy to follow at home along with home health if PCP refers for home Palliative care. No evidence distress or discomfort with patietn at present. Appreciate consult request, will attempt to follow for support. If patient continues to decline, hospice care may be appropriate if desired by / family. - Time Spent with Patient Time spent with patient: 15 to 30 Minutes - 20 min spent in chart review and brief visit with patient
[2016-05-24] MEDS ORDERED: SENNOSIDES/DOCUSATE 8.6-50 MG 1 EACH TABLET PEG SCH (22:00)
[2016-05-24] MEDS: ATORVASTATIN CALCIUM 80 MG TABLET PO SCH ×2 (22:51→23:06)
[2016-05-24] MEDS: INSULIN GLARGINE,HUM.REC.ANLOG 300 UNIT/3 ML INSULN.PEN SUBCUT SCH (22:51)
[2016-05-24] MEDS: AMLODIPINE BESYLATE 10 MG TABLET PEG SCH (23:07)
[2016-05-24] MEDS: NORMAL SALINE 10 ML SDV (SCHEDULED) IV SCH (23:09)
[2016-05-25] MEDS: IMIPENEM/CILASTATIN SODIUM 1,000 MG in NORMAL SALINE 250 ML IV SCH (02:23)
[2016-05-25] MEDS: HYDRALAZINE HCL 25 MG TABLET PO SCH (06:00)
[2016-05-25] MEDS: METOCLOPRAMIDE HCL ORAL SOLN 10 MG/10 ML UDCUP PEG SCH (06:01)
[2016-05-25 06:21] LABS: ABSOLUTE EOSINOPHILS # (AUTO) 0.1 10^3/uL (0.0-0.6); ABSOLUTE LYMPHOCYTES (AUTO) 0.9 10^3/uL (0.5-4.7); ABSOLUTE MONOCYTES (AUTO) 0.6 10^3/uL (0.1-1.4); ABSOLUTE NEUT (AUTO) 6.3 10^3/uL (1.7-8.2); BASOPHILS % (AUTO) 0.4 % (0-2); EOSINOPHILS % (AUTO) 1.4 % (0-6); HEMATOCRIT 29.8 % (36.0-47.0); HEMOGLOBIN 9.9 g/dL (12.0-15.5); HGB HCT DIFFERENCE -0.1; LYMPHOCYTES % (AUTO) 11.4 % (13-45); MEAN CORPUSCULAR HEMOGLOBIN 27.4 pg (27.0-33.4); MEAN CORPUSCULAR HGB CONC 33.1 g/dL (32.0-36.0); MEAN CORPUSCULAR VOLUME 83 fl (80-97); MONOCYTES % (AUTO) 7.1 % (3-13); RED BLOOD COUNT 3.59 10^6/uL (3.72-5.28); RED CELL DISTRIBUTION WIDTH 16.2 % (11.5-14.0); SEGMENTED NEUTROPHILS % (AUTO) 79.7 % (42-78)
[2016-05-25 06:39] LABS: ANION GAP 7 (5-19); BLOOD UREA NITROGEN 12 mg/dL (7-20); CALCIUM 8.8 mg/dL (8.4-10.2); CARBON DIOXIDE 28 mmol/L (22-30); CHLORIDE 104 mmol/L (98-107); CREATININE RESULT 0.32 mg/dL (0.52-1.25); GLUCOSE 139 mg/dL (75-110); POTASSIUM 3.5 mmol/L (3.6-5.0); SODIUM 139.3 mmol/L (137-145)
[2016-05-25] MEDS: IPRATROPIUM/ALBUTEROL 0.5-2.5 MG/3 ML AMPUL NEB SCH ×2 (07:37→16:16)
[2016-05-25] MEDS ORDERED: POTASSIUM CHLORIDE 20 MEQ/15 ML UDCUP PO ONE (08:00)
--- NOTE | 2016-05-25 08:59 | PDOC DISCHARGE SUMMARY ---
General - Admit/Disc Date/PCP Admission Date/Primary Care Provider: 05/23/16 11:43 [facility] Discharge Date: 05/25/16 - Discharge Diagnosis (1) Acute hypoxemic respiratory failure Is this a current diagnosis for this admission?: Yes (2) Aspiration pneumonia Is this a current diagnosis for this admission?: Yes (3) UTI due to extended-spectrum beta lactamase (ESBL) producing Escherichia coli Is this a current diagnosis for this admission?: Yes (4) Hypertensive emergency Is this a current diagnosis for this admission?: Yes (5) Malnutrition Is this a current diagnosis for this admission?: Yes (6) PEG (percutaneous endoscopic gastrostomy) status Is this a current diagnosis for this admission?: Yes (7) Sacral decubitus ulcer, stage IV Is this a current diagnosis for this admission?: Yes (8) Hypothyroid Is this a current diagnosis for this admission?: Yes (9) Dementia Is this a current diagnosis for this admission?: Yes (10) Do not resuscitate Is this a current diagnosis for this admission?: Yes - Additional Information Resuscitation Status: Do Not Resuscitate Discharge Diet: Tube Feeding (Comments) - Glucerna 1.2 at ml/h Discharge Activity: Activity As Tolerated Home Medications: Aspirin 81 mg PEG DAILY 12/26/14 Cyanocobalamin (Vitamin B-12) [B-12] 1,000 mcg PEG DAILY 12/26/14 Esomeprazole Mag Trihydrate [Nexium] 40 mg PEG DAILY 12/26/14 Furosemide [Lasix 20 mg Tablet] 10 mg PEG DAILY 12/26/14 Rosuvastatin Calcium [Crestor] 40 mg PEG DAILY #30 12/30/14 Sennosides [Senna] 8.6 mg PEG QHS #30 12/30/14 Insulin Glargine,Hum.rec.anlog [Lantus Solostar] 10 unit SQ QHS 04/28/16 Metoclopramide HCl 5 mg PEG Q8 04/28/16 Polyethylene Glycol 3350 [Polyethylene Glycol] 1 cap PEG DAILY 04/28/16 Acetaminophen [Tylenol Extra Strength 500 mg Tablet] 500 mg PEG DAILY 05/23/16 Amlodipine Besylate [Norvasc 10 mg Tablet] 10 mg PO QHS 05/23/16 Cholecalciferol (Vitamin D3) [Vitamin D3 1000 Unit Tablet] 1,000 unit PO DAILY 05/23/16 Levothyroxine Sodium [Synthroid 0.05 mg Tablet] 100 mcg PEG DAILY 05/23/16 Losartan Potassium [Cozaar] 100 mg PEG DAILY 05/23/16 Tramadol HCl [Ultram] 50 mg PO DAILYP PRN 05/23/16 Ertapenem Sodium [Invanz Inj 1 gm Vial] 1 gm IV DAILY 10 Days 05/25/16 Hydralazine HCl [Apresoline 25 mg Tablet] 25 mg PO Q8 #90 tablet 05/25/16 History of Present Illness Patient complains of: Shortness of breath History of Present Illness: MENDEL HEADLEY is a 76 year old female with a past medical history of nonverbal, dementia, recurrent aspiration and PEG tube who is at home and noted by family to be in respiratory distress shortly after taking something by mouth. EMS was called finding her with a blood pressure of 213/155 and a pulse of 166 setting only 60% on 2 L of home O2. She is placed on transdermal nitroglycerin and BiPAP brought to the emergency room for evaluation with biophysical and clinical improvement. Cardiac labs are pending she's found to have a stage IV sacral decubiti with malodorous discharge and referred the hospitalist for admission. Hospital Course Hospital Course: Patient was admitted for aspiration pneumonia, urinary tract infection, stage IV sacral decubitus wound, advanced dementia, dysphagia status post gastrostomy tube. Patient was started on empiric IV antibiotics until cultures were obtained. Wound culture grew Klebsiella, urine culture grew gram-negative rods. Based on susceptibility reports patient is discharged on IV ertapenem. PICC line was placed prior to discharge. Home health to discontinue PICC line after last dose of IV antibiotics were administered. Surgery was consult for wound management. Patient has not been seen by the wound clinic in the past. Wound care instructions will be given a home health nursing. Patient will be referred to the wound clinic for further management. With regard to end-stage dementia, palliative care consult was placed and discussion was held with patient's . Patient's advise me that he did not want to entertain palliative care or hospice services at this time as he would lose other benefits he currently has in place. With regard to hypertension, blood pressure is well controlled at 124/54 at time of discharge on above mentioned medication. With regard to dysphagia, patient is status post PEG tube and on enteral feedings mentioned above. Physical Exam Vital Signs: Temp Pulse Resp BP Pulse Ox 97.9 F 74 16 124/54 L 99 05/25/16 03:02 05/25/16 07:00 05/25/16 03:02 05/25/16 03:02 05/25/16 03:42 Intake & Output 05/24/16 05/25/16 05/26/16 06:59 06:59 06:59 Intake Total 2516 2780 Output Total 1950 1860 Balance 566 920 Weight 46.3 kg 53.1 kg GENERAL: No acute distress HEENT: Conjunctiva clear, nonicteric, moist mucous membranes, no JVD, midline trachea RESPIRATORY: Clear to auscultation bilaterally, no wheezes, no rhonchi CARDIAC: Regular rate and rhythm, systolic murmur ABDOMEN: Soft, nondistended, nontender, positive bowel sounds, no rebound, no guarding. PEG tube in place. EXTREMETIES: No edema, cyanosis, clubbing NEUROLOGIC: Alert, demented, CN's grossly intact, no focal deficits SKIN: Stage IV sacral wound Results Laboratory Results: 05/25/16 05:45 05/25/16 05:45 05/25/16 05/25/16 05:45 05:45 WBC 8.0 RBC 3.59 L Hgb 9.9 L Hct 29.8 L MCV 83 MCH 27.4 MCHC 33.1 RDW 16.2 H Plt Count 260 Seg Neutrophils % 79.7 H Lymphocytes % 11.4 L Monocytes % 7.1 Eosinophils % 1.4 Basophils % 0.4 Absolute Neutrophils 6.3 Absolute Lymphocytes 0.9 Absolute Monocytes 0.6 Absolute Eosinophils 0.1 Absolute Basophils 0.0 Sodium 139.3 Potassium 3.5 L Chloride 104 Carbon Dioxide 28 Anion Gap 7 BUN 12 Creatinine 0.32 L Est GFR ( Amer) > 60 Est GFR (Non-Af Amer) > 60 Glucose 139 H Calcium 8.8 05/22/16 19:36 Gram Stain - Preliminary Sacrum - Decubitis Ulcer Wound Culture - Preliminary Klebsiella Pneumoniae Gram Negative Rods#2 Skin Haley 05/22/16 18:33 Blood Culture - Preliminary Blood NO GROWTH AFTER 48 HOURS 05/22/16 17:42 Blood Culture - Preliminary Blood Gram Positive Cocci Clusters 05/22/16 17:40 Urine Culture - Preliminary Clean Catch Midstream Gram Negative Rods Impressions: Chest X-Ray 05/22/16 17:14 IMPRESSION: NO ACUTE RADIOGRAPHIC FINDING IN THE CHEST. Guidance Fluoroscopy 05/24/16 00:00 IMPRESSION: SUCCESSFUL PLACEMENT OF A 5 FR DUAL LUMEN 34 CM PICC IN THE right basilic VEIN. Interventional Vascular Procedure 05/24/16 00:00 IMPRESSION: SUCCESSFUL PLACEMENT OF A 5 FR DUAL LUMEN 34 CM PICC IN THE right basilic VEIN. PICC Line Insertion 05/24/16 00:00 IMPRESSION: SUCCESSFUL PLACEMENT OF A 5 FR DUAL LUMEN 34 CM PICC IN THE right basilic VEIN. Qualifiers PATEINT BEING DISCHARGED WITH ANY OF THE FOLLOWING DIAGNOSIS?: No Plan Discharge Plan: Follow-up with home health services. Home health to discontinue PICC line after last dose of IV antibiotics. Follow-up with primary care provider on [place] [facility]. Follow-up at wound clinic. Time Spent: Less than 30 Minutes
[2016-05-25] MEDS: ACETAMINOPHEN SOLN 325 MG/10.15 ML UDCUP PEG SCH (10:02)
[2016-05-25] MEDS: ASPIRIN 81 MG TABLET, CHEWABLE PEG SCH (10:03)
[2016-05-25] MEDS: CHOLECALCIFEROL (D3) 1,000 UNIT TABLET PEG SCH (10:03)
[2016-05-25] MEDS: LEVOTHYROXINE SODIUM 0.025 MG TABLET PO SCH (10:03)
[2016-05-25] MEDS: LANSOPRAZOLE 30 MG TAB.RAP.DR PO SCH (10:03)
[2016-05-25] MEDS: DULOXETINE HCL 30 MG CAPSULE.DR PO SCH (10:03)
[2016-05-25] MEDS: CYANOCOBALAMIN (VITAMIN B-12) 1,000 MCG TABLET PEG SCH (10:03)
[2016-05-25] MEDS: POLYETHYLENE GLYCOL 3350 POWDER 17 GM/1 PACKET PO SCH (10:04)
[2016-05-25] MEDS: LEVOTHYROXINE SODIUM 0.1 MG TABLET PO SCH (10:04)
[2016-05-25] MEDS: NORMAL SALINE 10 ML SDV (SCHEDULED) IV SCH (10:04)
[2016-05-25] MEDS ORDERED: ERTAPENEM SODIUM 1 GM in NORMAL SALINE 50 ML IV SCH (11:00)
[2016-05-25 14:01] VITALS: BP 143/60
== END 2016-05-25 18:15 | disposition home health service (06) | DRG 177 ==
LOC: ER 17:11 → INTOOBSV 20:04 → UNDOADMOB 20:04 → EH 20:04 → 3S 22:32 → OBSVTOIN 05-23 11:43 → 4N 05-24 05:49
PROVIDERS: ADMIT Internal Medicine; ATTEND Internal Medicine
PROC: 02HV33Z Insertion of Infusion Device into Superior Vena Cava, Percutaneous Approach (ICD-10-PCS; principal; 2016-05-24)
PROC: B518YZA Fluoroscopy of Superior Vena Cava using Other Contrast, Guidance (ICD-10-PCS; 2016-05-24)
PROC: B548ZZA Ultrasonography of Superior Vena Cava, Guidance (ICD-10-PCS; 2016-05-24)
PROC: 3E0234Z Introduction of Serum, Toxoid and Vaccine into Muscle, Percutaneous Approach (ICD-10-PCS; 2016-05-25)
DX: J69.0 Pneumonitis due to inhalation of food and vomit (principal); Z66 Do not resuscitate; J96.01 Acute respiratory failure with hypoxia; L89.154 Pressure ulcer of sacral region, stage 4; J44.1 Chronic obstructive pulmonary disease with (acute) exacerbation; E46 Unspecified protein-calorie malnutrition; I16.1 Hypertensive emergency; N39.0 Urinary tract infection, site not specified; E11.9 Type 2 diabetes mellitus without complications; E03.9 Hypothyroidism, unspecified; B96.20 Unspecified Escherichia coli [E. coli] as the cause of diseases classified elsewhere; F03.90 Unspecified dementia, unspecified severity, without behavioral disturbance, psychotic disturbance, mood disturbance, and anxiety; Z68.21 Body mass index [BMI] 21.0-21.9, adult; Z87.891 Personal history of nicotine dependence; Z93.1 Gastrostomy status; Z79.82 Long term (current) use of aspirin; Z79.84 Long term (current) use of oral hypoglycemic drugs; Z79.4 Long term (current) use of insulin; Z88.8 Allergy status to other drugs, medicaments and biological substances; Z91.040 Latex allergy status; Z23 Encounter for immunization
CPT/HCPCS: 36415; 36569; 71010; 76937; 77001; 80048; 80053; 81001; 82550; 82553; 82803; 82962; 83605; 83880; 84484; 85025; 85610; 87040; 87070; 87075; 87077; 87086; 87088; 87186; 87205; 90686; 93005; 93010; 94660; 99285; G0378; J0696; J0743; J1335; J1642; J1644; J1815; J1940; J3490; J7030; J7050; J7620